=== PATIENT | male | born 1955 | race Two or more races ===

== ENCOUNTER 2018-10-16 09:27 | Inpatient (IN) | payer SELFPAY ==
[2018-10-16] MEDS ORDERED: ONDANSETRON 4 MG/2 ML VIAL IVPUSH ONE (10:10)
[2018-10-16] MEDS ORDERED: SODIUM CHLORIDE 1,000 ML IV STA ×2 (10:10→14:48)
[2018-10-16 10:53] LABS: BASO % 0.4 % (0-2.0); EOS % 2.7 % (0-4.5); HEMATOCRIT 41.3 % (35.4-49); HEMOGLOBIN 13.8 GM/dL (11.7-16.9); LYMPH % 4.6 % (8-40); MCH 30.6 pg (25.7-33.7); MCHC 33.4 g/dl (32.0-35.9); MEAN CELL VOLUME 91.5 fl (80-96); MEAN PLT VOLUME 6.8 fl (7.5-11.1); MONO % 5.9 % (3.8-10.2); NEUT % 86.4 % (42.8-82.8); PLATELET COUNT 364 K/MM3 (134-434); RBC 4.51 M/mm3 (4.00-5.60); RDW 15.5 % (11.9-15.9); WHITE BLOOD COUNT 8.9 K/mm3 (4.0-10.0)
[2018-10-16 10:57] LABS: VENOUS PC02 42.9 mmHg (38-52); VENOUS PH 7.38 (7.31-7.41)
--- NOTE | 2018-10-16 10:58 | PDOC ---
Documentation entered by Joanne Beauchamp SCRIBE, acting as scribe for Gabriela Treviño MD. Gabriela Treviño MD: This documentation has been prepared by the Nito webber Xhesika, SCRIBE, under my direction and personally reviewed by me in its entirety. I confirm that the documentation accurately reflects all work, treatment, procedures, and medical decision making performed by me. Attending Attestation - Resident Resident Name: Ceasar Dunn - ED Attending Attestation I have performed the following: I have examined & evaluated the patient, The case was reviewed & discussed with the resident, I agree w/resident's findings & plan, Exceptions are as noted - HPI HPI: 10/16/18 10:45 The patient is a 62 year old male with a significant PMH of HTN, osteoarthritis (knees, hip and back), hep C (currently undergoing treatment) and recent UTI ( on Bactrim) who presents to the emergency department with generalized weakness, fatigue, sweating, chest pain and nausea. Patient states he started a new medication yesterday evening for Hep C. He awoke this morning, stated that he tried to get up but felt weak, endorsed a fever at home and headache. Patient currently lives in a fpc and denies any recent travels, denies PPD. The patient denies shortness of breath, and dizziness. Denies cough, vomiting, diarrhea and constipation. Denies dysuria, frequency, urgency and hematuria. Allergies: NKDA PCP: Padilla Garcia - Physicial Exam PE: 10/16/18 10:20 GENERAL: The patient is in no acute distress, sweaty ENT: Ears normal, nares patent, oropharynx clear without exudates. Dry mucous membranes. NECK: Normal range of motion, supple, no nuchal rigidity LUNGS: Breath sounds equal, clear to auscultation bilaterally. No wheezes, and no crackles. HEART: Regular rate and rhythm, normal S1 and S2 without murmur, rub or gallop. ABDOMEN: Soft, suprapubic tenderness, no involuntary guarding, no rebound. EXTREMITIES: (+) lower extremity edema. NEUROLOGICAL: Cranial nerves II through XII grossly intact. Normal speech. No focal neurological deficits. SKIN: Warm, Dry, normal turgor, no rashes or lesions noted. 10/16/18 10:50 - Medical Decision Making 08/23/19 10:20 62 yo m h/o HLD, Hep C (s/p new medication), DVT dx 4 months ago (on Coumadin), currently being treated for UTI (has had gross hematuria and dysuria for the past 3 weeks) EKG: ST rate of 106 bpm, axis nml, intervals nml, no st elevation or depression , t wave inversion III 10/16/18 10:51 62 yo M presenting with a complaint of generalized weakness, suprapubic pain He feels like he has a fever Temp =99.7 Will do Rectal temp Will do sepsis orderset tylenol for pain IVF Re Assess 10/16/18 14:41 Laboratory Tests 10/16/18 10/16/18 10/16/18 10:14 10:14 10:30 WBC Hgb Hct Plt Count INR VBG pH POC VBG pCO2 POC VBG pO2 Sodium 134 L Potassium 4.2 Chloride 101 Carbon Dioxide 26 BUN 18.6 H Creatinine 1.1 Random Glucose 98 Lactic Acid 2.1 H Troponin I < 0.02 Lipase 113 Urine Blood Urine Nitrite Ur Leukocyte Esterase 10/16/18 10/16/18 10/16/18 10:30 10:30 10:30 WBC 8.9 Hgb 13.8 Hct 41.3 Plt Count 364 INR 1.13 H VBG pH 7.38 POC VBG pCO2 42.9 POC VBG pO2 < 49 H Sodium Potassium Chloride Carbon Dioxide BUN Creatinine Random Glucose Lactic Acid Troponin I Lipase Urine Blood Urine Nitrite Ur Leukocyte Esterase 10/16/18 13:05 WBC Hgb Hct Plt Count INR VBG pH POC VBG pCO2 POC VBG pO2 Sodium Potassium Chloride Carbon Dioxide BUN Creatinine Random Glucose Lactic Acid Troponin I Lipase Urine Blood Negative Urine Nitrite Negative Ur Leukocyte Esterase Negative Rectal Temp 101 Tylenol given CTA - NO PE CT Abd - Gallbladder is distended with small stones in the neck, no GB wall thickening, No PCCF Will do: US GB Zosyn ordered IVF given Will plan to Admit (given fever and CT findings) Clinical impression: Acute Cholecystitis, initial presentation
[2018-10-16 11:00] LABS: VENOUS PO2 < 49 mmHg (28-48)
[2018-10-16] MEDS ORDERED: ONDANSETRON 4 MG/2 ML VIAL ONE (11:20)
[2018-10-16 11:24] LABS: INR 1.13 (0.83-1.09); PROTHROMBIN TIME (PATIENT) 13.4 SEC (9.7-13.0)
[2018-10-16 11:26] LABS: ACTIVATED PTT 33.8 SECONDS (25.2-36.5)
[2018-10-16 11:37] LABS: ALBUMIN 3.4 g/dl (3.4-5.0); BILIRUBIN,TOTAL 0.7 mg/dL (0.2-1); BLOOD UREA NITROGEN 18.6 mg/dL (7-18); CALCIUM 9.1 mg/dL (8.5-10.1); CREATININE 1.1 mg/dL (0.55-1.3); POTASSIUM 4.2 mmol/L (3.5-5.1)
--- NOTE | 2018-10-16 11:42 | EKG ---
Test Reason : Blood Pressure : / mmHG Vent. Rate : 106 BPM Atrial Rate : 106 BPM P-R Int : 166 ms QRS Dur : 086 ms QT Int : 320 ms P-R-T Axes : 015 014 021 degrees QTc Int : 425 ms SINUS TACHYCARDIA OTHERWISE NORMAL ECG NO PREVIOUS ECGS AVAILABLE Confirmed by SHEILA VUONG MD ([id number]) on 10/16/2018 11:42:29 AM Referred By: Confirmed By:SHEILA VUONG MD
--- NOTE | 2018-10-16 12:13 | PDOC ---
History of Present Illness - General Chief Complaint: Chest Pain Stated Complaint: CHEST PAIN Time Seen by Provider: 10/16/18 09:44 - History of Present Illness Initial Comments: 10/16/18 12:24 62m with pmh of hepc, htn, dvt, presenting with chest pain, shortness of breath , nausea, diaphoresis, abdominal pain for the past day after starting new medication yesterday "Harvoni" All of these symptoms atarted last night around 3 am. Patient is currently being treated for a UTI with Bactrim. Is also is complaining of chronic joint pain especially at the hips. Denies vomiting, constipation, dysuria, diarrhea. Past History - Past Medical History Allergies/Adverse Reactions: Allergies Allergy/AdvReac Type Severity Reaction Status Date / Time No Known Allergies Allergy Verified 10/16/18 09:48 Home Medications: Ambulatory Orders Acetaminophen [Pain Relief] 650 mg PO PRN PRN 10/16/18 Atorvastatin Ca [Lipitor] 20 mg PO HS 10/16/18 Ledipasvir/Sofosbuvir [Harvoni 90-400 mg Tablet] 1 tab PO DAILY 10/16/18 Paroxetine HCl [Paxil -] 60 mg PO DAILY 10/16/18 Sulfamethoxazole/Trimethoprim [Bactrim Ds -] 1 tab PO BID 10/16/18 Warfarin Sodium 3 mg PO DAILY 10/16/18 traZODone HCL [Trazodone HCl] 100 mg PO DAILY 10/16/18 COPD: No GI Disorders: Yes (hep c) HTN: Yes Hypercholesterolemia: Yes Other medical history: RLE DVT - Suicide/Smoking/Psychosocial Hx Smoking History: Former smoker Have you smoked in the past 12 months: No Information on smoking cessation initiated: No Hx Alcohol Use: No Drug/Substance Use Hx: No Review of Systems - Review of Systems Able to Perform ROS?: Yes Is the patient limited Kuwaiti proficient: No Constitutional: Yes: Diaphoresis HEENTM: No: Symptoms Reported Respiratory: Yes: See HPI, Shortness of Breath Cardiac (ROS): Yes: See HPI : Yes: See HPI Musculoskeletal: Yes: See HPI Neurological: No: Symptoms reported *Physical Exam - Vital Signs Last Vital Signs Temp Pulse Resp BP Pulse Ox 99.4 F 114 H 20 101/70 93 L 10/16/18 09:40 10/16/18 09:40 10/16/18 09:40 10/16/18 09:40 10/16/18 09:40 - Physical Exam General Appearance: Yes: Nourished, Moderate Distress HEENT: positive: EOMI, LEYDI, Normal ENT Inspection Respiratory/Chest: positive: Lungs Clear, Normal Breath Sounds. negative: Chest Tender, Respiratory Distress Cardiovascular: positive: Regular Rhythm, S1, S2, Tachycardia Gastrointestinal/Abdominal: positive: Normal Bowel Sounds, Tender (suprapubic), Soft, Protuberent Musculoskeletal: positive: Normal Inspection. negative: CVA Tenderness Extremity: positive: Normal Capillary Refill, Normal Inspection, Normal Range of Motion Integumentary: positive: Diaphoresis (slight) Neurologic: positive: Fully Oriented, Alert, Normal Mood/Affect, Normal Response ED Treatment Course - LABORATORY CBC & Chemistry Diagram: 10/16/18 10:30 10/16/18 10:14 - ADDITIONAL ORDERS Additional order review: Laboratory Results 10/16/18 10/16/18 10/16/18 10:30 10:30 10:30 PT with INR 13.40 H INR 1.13 H PTT (Actin FS) 33.8 VBG pH 7.38 POC VBG pCO2 42.9 POC VBG pO2 < 49 H VBG HCO3 24.6 VBG O2 Sat (Alla) 56.5 L VBG Base Excess -0.2 Sodium Potassium Chloride Carbon Dioxide Anion Gap BUN Creatinine Est GFR (CKD-EPI)AfAm Est GFR (CKD-EPI)NonAf Random Glucose Lactic Acid Calcium Total Bilirubin AST ALT Alkaline Phosphatase Troponin I < 0.02 Total Protein Albumin Lipase 10/16/18 10/16/18 10:14 10:14 PT with INR INR PTT (Actin FS) VBG pH POC VBG pCO2 POC VBG pO2 VBG HCO3 VBG O2 Sat (Alla) VBG Base Excess Sodium 134 L Potassium 4.2 Chloride 101 Carbon Dioxide 26 Anion Gap 7 L BUN 18.6 H Creatinine 1.1 Est GFR (CKD-EPI)AfAm 82.95 Est GFR (CKD-EPI)NonAf 71.57 Random Glucose 98 Lactic Acid 2.1 H Calcium 9.1 Total Bilirubin 0.7 AST 27 ALT 45 Alkaline Phosphatase 89 Troponin I Total Protein 8.0 Albumin 3.4 Lipase 113 10/16/18 10:30 RBC 4.51 MCV 91.5 MCHC 33.4 RDW 15.5 MPV 6.8 L Neutrophils % 86.4 H Lymphocytes % 4.6 L Monocytes % 5.9 Eosinophils % 2.7 Basophils % 0.4 - RADIOLOGY Radiology Studies Ordered: Category Date Time Status ABDOMEN & PELVIS CT WITH CONTR [CT] Stat CT Scan 10/16/18 12:12 Ordered CHEST X-RAY PORTABLE* [RAD] Stat Radiology 10/16/18 10:09 Completed - Medications Given in the ED: ED Medications Discontinued Medications Generic Name Dose Route Start Last Admin Trade Name Freq PRN Reason Stop Dose Admin Sodium Chloride 1,000 mls @ 1,000 mls/hr 10/16/18 10:10 10/16/18 10:48 Normal Saline - IV 10/16/18 11:09 1,000 mls/hr ASDIR STA Administration Ondansetron HCl 4 mg 10/16/18 10:10 10/16/18 11:10 Zofran Injection IVPUSH 10/16/18 10:11 4 mg ONCE ONE Administration Medical Decision Making - Medical Decision Making 10/16/18 14:15 62 with htn, hld, uti and hepC presenting with chest pain, abdominal pain. Patient is tachycardiac with low grade fever will oder septic workup. Considering possible worsening UTi as source of infection especially with suprapubic pain and known uti, but also pneumonia and appendicitis. In addition considering WA, dissection, AAA. EKG: cxr: no acute pathologies. Kidney function normal, ordering chest and abdomen/pelvic CTA. CTA read pending. 10/16/18 14:18 lactate 2.1 No UTI seen on UA. 10/16/18 14:45 CTA read Normal size thoracic aorta without aneurysmal dilatation. There is a small short segment of fusiform dilatation of the distal abdominal aorta just prior to its bifurcation where it measures 2.6 x 2.4 cm in transverse and AP dimension with an atheromatous plaque. 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 There is no evidence of dissection involving the thoracic and abdominal aorta. No acute lung disease is present. No enlarged mediastinal or hilar lymph nodes are identified. Minimal calcification of the coronary arteries. In the abdomen pelvis, there is suggestion of mild fatty infiltration of the liver. Small gallstones with a 6 mm stone seen at the level of the gallbladder neck and its junction with the cystic duct. Correlate clinically for further evaluation. Small bilateral renal cysts, as described above. Tiny fat-containing bilateral inguinal and umbilical hernia. Deformity of L5 vertebral body with compression likely due to old fractures/ trauma with a grade 2 anterolisthesis of L5 over S1 and fusion. There is suggestion of bilateral spondylolysis of L5 pars interarticulares. Severe degenerative changes involving the left hip joint with deformity of the left femoral head. Large cystic density in the left femoral neck measuring 4.8 x 3.1 cm likely benign. Further evaluation is recommended. Moderate degenerative narrowing of the right hip joint, superiorly. 10/16/18 16:44 Multiple obstructing stones on ct and US. Patient sepsis treated with abx and ns. Spoke to Dr. Oseguera with surgery who will come see the patient. 10/16/18 16:46 Patient admitted to med surg. *DC/Admit/Observation/Transfer Diagnosis at time of Disposition: Sepsis, Cholecystitis - Discharge Dispostion Decision to Admit order: Yes - Referrals Referrals: Padilla John MD [Primary Care Provider] - - Patient Instructions - Post Discharge Activity
[2018-10-16] MEDS ORDERED: ACETAMINOPHEN 1000 MG/100 ML VIAL (NON FORMULARY) IVPB ONE (12:33)
[2018-10-16] MEDS ORDERED: ACETAMINOPHEN INJECTION 100 ML IVPB ONE (12:53)
[2018-10-16 13:22] LABS: URINE APPEARANCE CLEAR; URINE BILIRUBIN NEGATIVE (NEGATIVE); URINE COLOR DK YELLOW; URINE GLUCOSE (UA) NEGATIVE (NEGATIVE); URINE KETONE TRACE (NEGATIVE); URINE LEUK ESTERASE NEGATIVE (NEGATIVE); URINE NITRITE NEGATIVE (NEGATIVE); URINE PROTEIN TRACE (NEGATIVE)
[2018-10-16] MEDS ORDERED: PIPERACILLIN/TAZOB 4.5 GM 4.5 GM in DEXTROSE 5%-WATER 100 ML IVPB ONE (14:45)
[2018-10-16] MEDS ORDERED: IBUPROFEN 800 MG/8 ML IJ IVPB ONE (14:46)
[2018-10-16] MEDS ORDERED: PIPERACILLIN/TAZOB 4.5 GM 4.5 GM/100 ML BAG IVPB ONE (17:00)
--- NOTE | 2018-10-16 17:55 | CONSULT ---
- Consultation REQUESTING PROVIDER: Shaun BACON CONSULT REQUEST: We have been asked to surgically evaluate this patient for abdominal/chest pain which upon w/u reveals symptomatic gallbladder disease. PCP:Carmenza Grijalva HISTORY OF PRESENT ILLNESS: CTSP who presented w/n/v/ RUQ pain after eating; he never had this before; he denies dark urine/light stools or any other GI/ c/o e/f hep C.recently started on Harvoni.. Pain radiated to his back and was associated w/" heartburn "; he came to the ER for evaluation and a w/u was done ; he originally described the pain as " chest pain " PMHx: htn/hld/hep C /? DVT ?/anxiety PSHx: none Home Medications Medication Instructions Recorded Acetaminophen [Pain Relief] 650 mg PO PRN PRN 10/16/18 Atorvastatin Ca [Lipitor] 20 mg PO HS 10/16/18 Ledipasvir/Sofosbuvir [Harvoni 1 tab PO DAILY 10/16/18 90-400 mg Tablet] Paroxetine HCl [Paxil -] 60 mg PO DAILY 10/16/18 Sulfamethoxazole/Trimethoprim 1 tab PO BID 10/16/18 [Bactrim Ds -] Warfarin Sodium 3 mg PO DAILY 10/16/18 traZODone HCL [Trazodone HCl] 100 mg PO DAILY 10/16/18 Allergies Allergy/AdvReac Type Severity Reaction Status Date / Time No Known Allergies Allergy Verified 10/16/18 09:48 REVIEW OF SYSTEMS: CONSTITUTIONAL: Absent: fever, chills, diaphoresis, generalized weakness, malaise, loss of appetite, weight change CARDIOVASCULAR: Absent: chest pain, syncope, palpitations, irregular heart rate, lightheadedness , peripheral edema RESPIRATORY: Absent: cough, shortness of breath, dyspnea with exertion, wheezing, stridor, hemoptysis GASTROINTESTINAL: Absent: abdominal pain, abdominal distension, nausea, vomiting, diarrhea, constipation, melena, hematochezia GENITOURINARY: Absent: dysuria, frequency, urgency, hesitancy, hematuria, flank pain, genital pain MUSCULOSKELETAL: Absent: myalgia, arthralgia, joint swelling, back pain, neck pain SKIN: Absent: rash, itching, pallor HEMATOLOGIC/IMMUNOLOGIC: Absent: easy bleeding, easy bruising, lymphadenopathy NEUROLOGIC: Absent: headache, focal weakness, paresthesias, dizziness, unsteady gait, seizure, mental status changes, bladder or bowel incontinence PSYCHIATRIC: Absent: anxiety, depression, suicidal or homicidal ideation, hallucinations. PHYSICAL EXAM: GENERAL: Awake, alert, and fully oriented, in no acute distress. HEAD: Normal with no signs of trauma. EYES: PERRL, sclera anicteric, conjunctiva clear. NECK: Normal ROM, supple without lymphadenopathy, JVD, or masses. ABDOMEN: Soft, nontender, not distended, normoactive bowel sounds, no guarding, no rebound, no masses. No organomegaly. No clinical hernias MUSCULOSKELETAL: Normal ROM at all joints. No bony deformities or tenderness. No CVA tenderness. UPPER EXTREMITIES: 2+ pulses, warm, well-perfused. No cyanosis. Cap refill <2 seconds. No peripheral edema. LOWER EXTREMITIES: 2+ pulses, warm, well-perfused. No calf tenderness. No peripheral edema. NEUROLOGICAL: Normal speech, gait not observed. PSYCH: Cooperative. Good eye contact. Appropriate mood and affect. SKIN: Warm, dry, normal turgor, no rashes or lesions noted. Vital Signs Temperature 101.0 F H 10/16/18 11:00 Pulse Rate 114 H 10/16/18 09:40 Respiratory Rate 20 10/16/18 09:40 Blood Pressure 101/70 10/16/18 09:40 O2 Sat by Pulse Oximetry (%) 93 L 10/16/18 09:40 Lab Results WBC 8.9 K/mm3 (4.0-10.0) 10/16/18 10:30 RBC 4.51 M/mm3 (4.00-5.60) 10/16/18 10:30 Hgb 13.8 GM/dL (11.7-16.9) 10/16/18 10:30 Hct 41.3 % (35.4-49) 10/16/18 10:30 MCV 91.5 fl (80-96) 10/16/18 10:30 MCHC 33.4 g/dl (32.0-35.9) 10/16/18 10:30 RDW 15.5 % (11.9-15.9) 10/16/18 10:30 Plt Count 364 K/MM3 (134-434) 10/16/18 10:30 Sodium 134 mmol/L (136-145) L 10/16/18 10:14 Potassium 4.2 mmol/L (3.5-5.1) 10/16/18 10:14 Chloride 101 mmol/L (98-107) 10/16/18 10:14 Carbon Dioxide 26 mmol/L (21-32) 10/16/18 10:14 Anion Gap 7 MMOL/L (8-16) L 10/16/18 10:14 BUN 18.6 mg/dL (7-18) H 10/16/18 10:14 Creatinine 1.1 mg/dL (0.55-1.3) 10/16/18 10:14 Random Glucose 98 mg/dL (74-106) 10/16/18 10:14 Calcium 9.1 mg/dL (8.5-10.1) 10/16/18 10:14 INR 1.13 (0.83-1.09) H 10/16/18 10:30 US/CTA a/p and CTA chest reviewed IMP:symptomatic gallbladder disease PLAN: Admit/NPO/IVF/IVABS/pain control and lap michelle possible open 10/19/18; r/b /t/a's d/w him and he will give informed consent.. Paresh Oseguera MD FACS
[2018-10-16] MEDS ORDERED: MORPHINE SULFATE 2 MG/ML VIAL IVPUSH PRN (18:07)
[2018-10-16] MEDS ORDERED: ACETAMINOPHEN 325 MG TABLET (FP) PO PRN (18:07)
[2018-10-16] MEDS ORDERED: LACTATED RINGERS SOLUTION 1,000 ML IV SCH (18:15)
[2018-10-16] MEDS ORDERED: CEFTRIAXONE 1 GM in DEXTROSE 5%-WATER - 50 ML IVPB ONE (18:15)
--- NOTE | 2018-10-16 18:26 | HP ---
CHIEF COMPLAINT: abdominal pain PCP: HISTORY OF PRESENT ILLNESS:62 yo M PMH HTN, HLD, DVT R Leg on warfarin, mood disorder, osteoarthritis, hep C ( currently treating w/Harvoni ), mood disorder , and recently UTI ( still taking Bactrim x2w) presented to ED with Abdominal pain. fatigue, CP, nausea. Pt states the pain began over night as chest pain keeping him from sleeping. When patient woke up this morning he had abdominal pain and weakness. pt states the pain is sharp 10/10 in RUQ/ R flank. Pt states the pain is localized to that region. He denies eating anything this am. pt states he has never experienced this in the past. Pt states the pain has not improved with anything. The pt recently started a new medication for his Hep C and was warned of some of these symptoms. Pt states he recently had a DVT in May this year. Pt was incarcerated and is now living in a intermediate but follows up with [facility] regularly. He states he is compliant with his medications. ER course was notable for: (1)CT showing cholelithiasis, AAA- see below for details (2) Zosyn (3) NS x2 Recent Travel: denies PAST MEDICAL HISTORY: as stated above PAST SURGICAL HISTORY: denies Social History: Smokin pk yrs, quit 2 years ago Alcohol:denies Drugs: denies Family History: Father DM, Sister of liver cirrhosis , AIDS Allergies No Known Allergies Allergy (Verified 10/16/18 09:48) HOME MEDICATIONS: Home Medications Medication Instructions Recorded Acetaminophen [Pain Relief] 650 mg PO PRN PRN 10/16/18 Atorvastatin Ca [Lipitor] 20 mg PO HS 10/16/18 Ledipasvir/Sofosbuvir [Harvoni 1 tab PO DAILY 10/16/18 90-400 mg Tablet] Paroxetine HCl [Paxil -] 60 mg PO DAILY 10/16/18 Sulfamethoxazole/Trimethoprim 1 tab PO BID 10/16/18 [Bactrim Ds -] Warfarin Sodium 3 mg PO DAILY 10/16/18 traZODone HCL [Trazodone HCl] 100 mg PO DAILY 10/16/18 REVIEW OF SYSTEMS CONSTITUTIONAL: Present: chills, generalized weakness Absent: fever, diaphoresis, malaise, loss of appetite, weight change HEENT: Absent: rhinorrhea, nasal congestion, throat pain, throat swelling, difficulty swallowing, mouth swelling, ear pain, eye pain, visual changes CARDIOVASCULAR: Present: chest pain, dizziness Absent: syncope, palpitations, irregular heart rate, lightheadedness, peripheral edema RESPIRATORY: Absent: cough, shortness of breath, dyspnea with exertion, orthopnea, wheezing, stridor, hemoptysis GASTROINTESTINAL: Present: abdominal pain, nausea Absent: abdominal distension, vomiting, diarrhea, constipation, melena, hematochezia GENITOURINARY: Absent: dysuria, frequency, urgency, hesitancy, hematuria, flank pain, genital pain MUSCULOSKELETAL: Absent: myalgia, arthralgia, joint swelling, back pain, neck pain SKIN: Absent: rash, itching, pallor HEMATOLOGIC/IMMUNOLOGIC: Absent: easy bleeding, easy bruising, lymphadenopathy, frequent infections ENDOCRINE: Absent: unexplained weight gain, unexplained weight loss, heat intolerance, cold intolerance NEUROLOGIC: Present: dizziness Absent: headache, focal weakness or paresthesias, unsteady gait, seizure, mental status changes, bladder or bowel incontinence PSYCHIATRIC: Absent: anxiety, depression, suicidal or homicidal ideation, hallucinations. PHYSICAL EXAMINATION Vital Signs - 24 hr 10/16/18 10/16/18 09:40 11:00 Temperature 99.4 F 101.0 F H Pulse Rate 114 H Respiratory 20 Rate Blood Pressure 101/70 O2 Sat by Pulse 93 L Oximetry (%) GENERAL: Awake, alert, and fully oriented, in no acute distress. diaphoretic HEAD: Normal with no signs of trauma. EYES: Pupils equal, round and reactive to light, extraocular movements intact, sclera anicteric, conjunctiva clear. No lid lag. EARS, NOSE, THROAT: Ears normal, nares patent, oropharynx clear without exudates. Moist mucous membranes. NECK: Normal range of motion, supple without lymphadenopathy, JVD, or masses. LUNGS: Breath sounds equal, clear to auscultation bilaterally. No wheezes, and no crackles. No accessory muscle use. HEART: tachycardic and regular rhythm, normal S1 and S2 without murmur, rub or gallop. ABDOMEN: Soft, not distended,tender to palpation in RUQ, LLQ. +Luckey sign, normoactive bowel sounds,no rebound, no masses. + hepatomegaly. No CVA tenderness MUSCULOSKELETAL: Normal range of motion at all joints. No bony deformities or tenderness. No CVA tenderness. UPPER EXTREMITIES: 2+ pulses, warm, well-perfused. No cyanosis. No clubbing. No peripheral edema. LOWER EXTREMITIES: 2+ pulses, warm, well-perfused. + calf tenderness. B/L nonpitting edema. NEUROLOGICAL: Cranial nerves II-XII intact. Normal speech. gait not observed . PSYCHIATRIC: Cooperative. Good eye contact. Appropriate mood and affect. SKIN: Warm, dry, normal turgor, no rashes or lesions noted, normal capillary refill. Laboratory Last Values WBC 8.9 K/mm3 (4.0-10.0) 10/16/18 10:30 RBC 4.51 M/mm3 (4.00-5.60) 10/16/18 10:30 Hgb 13.8 GM/dL (11.7-16.9) 10/16/18 10:30 Hct 41.3 % (35.4-49) 10/16/18 10:30 MCV 91.5 fl (80-96) 10/16/18 10:30 MCH 30.6 pg (25.7-33.7) 10/16/18 10:30 MCHC 33.4 g/dl (32.0-35.9) 10/16/18 10:30 RDW 15.5 % (11.9-15.9) 10/16/18 10:30 Plt Count 364 K/MM3 (134-434) 10/16/18 10:30 MPV 6.8 fl (7.5-11.1) L 10/16/18 10:30 Absolute Neuts (auto) 7.7 K/mm3 (1.5-8.0) 10/16/18 10:30 Neutrophils % 86.4 % (42.8-82.8) H 10/16/18 10:30 Lymphocytes % 4.6 % (8-40) L 10/16/18 10:30 Monocytes % 5.9 % (3.8-10.2) 10/16/18 10:30 Eosinophils % 2.7 % (0-4.5) 10/16/18 10:30 Basophils % 0.4 % (0-2.0) 10/16/18 10:30 Nucleated RBC % 0 % (0-0) 10/16/18 10:30 PT with INR 13.40 SEC (9.7-13.0) H 10/16/18 10:30 INR 1.13 (0.83-1.09) H 10/16/18 10:30 PTT (Actin FS) 33.8 SECONDS (25.2-36.5) 10/16/18 10:30 VBG pH 7.38 (7.31-7.41) 10/16/18 10:30 POC VBG pCO2 42.9 mmHg (38-52) 10/16/18 10:30 POC VBG pO2 < 49 mmHg (28-48) H 10/16/18 10:30 VBG HCO3 24.6 mmol/L (23-29) 10/16/18 10:30 VBG O2 Sat (Alla) 56.5 % (70-80) L 10/16/18 10:30 VBG Base Excess -0.2 meq/l (-2-2) 10/16/18 10:30 Sodium 134 mmol/L (136-145) L 10/16/18 10:14 Potassium 4.2 mmol/L (3.5-5.1) 10/16/18 10:14 Chloride 101 mmol/L (98-107) 10/16/18 10:14 Carbon Dioxide 26 mmol/L (21-32) 10/16/18 10:14 Anion Gap 7 MMOL/L (8-16) L 10/16/18 10:14 BUN 18.6 mg/dL (7-18) H 10/16/18 10:14 Creatinine 1.1 mg/dL (0.55-1.3) 10/16/18 10:14 Est GFR (CKD-EPI)AfAm 82.95 10/16/18 10:14 Est GFR (CKD-EPI)NonAf 71.57 10/16/18 10:14 Random Glucose 98 mg/dL (74-106) 10/16/18 10:14 Lactic Acid 2.1 mmol/L (0.4-2.0) H 10/16/18 10:14 Calcium 9.1 mg/dL (8.5-10.1) 10/16/18 10:14 Total Bilirubin 0.7 mg/dL (0.2-1) 10/16/18 10:14 AST 27 U/L (15-37) 10/16/18 10:14 ALT 45 U/L (13-61) 10/16/18 10:14 Alkaline Phosphatase 89 U/L (45-117) 10/16/18 10:14 Troponin I < 0.02 ng/ml (0.00-0.05) 10/16/18 10:30 Total Protein 8.0 g/dl (6.4-8.2) 10/16/18 10:14 Albumin 3.4 g/dl (3.4-5.0) 10/16/18 10:14 Lipase 113 U/L (73-393) 10/16/18 10:14 Urine Color Dk yellow 10/16/18 13:05 Urine Appearance Clear 10/16/18 13:05 Urine pH 6.0 (5.0-8.0) 10/16/18 13:05 Ur Specific [place] 1.025 (1.010-1.035) 10/16/18 13:05 Urine Protein Trace (NEGATIVE) 10/16/18 13:05 Urine Glucose (UA) Negative (NEGATIVE) 10/16/18 13:05 Urine Ketones Trace (NEGATIVE) H 10/16/18 13:05 Urine Blood Negative (NEGATIVE) 10/16/18 13:05 Urine Nitrite Negative (NEGATIVE) 10/16/18 13:05 Urine Bilirubin Negative (NEGATIVE) 10/16/18 13:05 Urine Urobilinogen 1.0 mg/dL (0.2-1.0) 10/16/18 13:05 Ur Leukocyte Esterase Negative (NEGATIVE) 10/16/18 13:05 CT Abdomen/ Pelvis: IMPRESSION: Mild fusiform aneurysmal dilatation of the distal abdominal aorta, as described above. 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 There is no evidence of dissection involving the thoracic and abdominal aorta. No acute lung disease is present. No enlarged mediastinal or hilar lymph nodes are identified. Minimal calcification of the coronary arteries. In the abdomen pelvis, there is suggestion of mild fatty infiltration of the liver. Small gallstones with a 6 mm stone seen at the level of the gallbladder neck and its junction with the cystic duct. Correlate clinically for further evaluation. Small bilateral renal cysts, as described above. Tiny fat-containing bilateral inguinal and umbilical hernia. Deformity of L5 vertebral body with compression likely due to old fractures/trauma with a grade 2 anterolisthesis of L5 over S1 and fusion. There is suggestion of bilateral spondylolysis of L5 pars interarticulares. Severe degenerative changes involving the left hip joint with deformity of the left femoral head. Large cystic density in the left femoral neck measuring 4.8 x 3.1 cm likely benign. Further evaluation is recommended. Moderate degenerative narrowing of the right hip joint, superiorly. U/S: Impression: Cholelithiasis is noted without sonographic evidence of acute cholecystitis. The common bile duct is not adequately visualized due to obscuring bowel gas. No biliary tract dilatation was described on CT performed earlier the same date. The infrarenal aorta is obscured on the current exam due to bowel gas. 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 Correlation with 2 month follow-up contrast enhanced CT is suggested to evaluate stability. ASSESSMENT/PLAN: 62 yo M PMH HTN, HLD, DVT R Leg on warfarin, mood disorder, osteoarthritis, hep C ( currently treating w/Harvoni ), mood disorder, and recently UTI ( still taking Bactrim x2w) presented to ED with Abdominal pain. fatigue, CP, nausea. Pt is admitted for Acute cholecytitis. In ED, hypotensive 84/42, rpt 94/61 Abdominal Pain likely 2/2 Acute cholecytitis -CT Abdomen/ Pelvis: reviewed, gallstones seen in gallbladder neck and its junction w/ cystic duct. -U/S : cholelithiasis, no biliary tract dilation -NPO -IVF NS @ 125 mls/hr -500 ml bolus NS -Morphine 2mg q4 for pain -tele monitor -Surgery recs appreciated, possible lap/cholecytectomy -s/p zosyn in Ed -Ceftriaxone, Flagyl -trend LFTs -Lactic a--> 2.1, will rpt AAA -incidental finding -outpt f/u in 6 mo for U/S Hx of DVT -Doppler to r/o increasing DVT -suboptimal INR -Full dose Lovenox UTI -UA negative -will follow Cx HCV -Harvoni F/E/N -NS @ 125 mls/hr -NPO DVTppx:on full dose lovenox Dispo: monitor on tele until medically optimized Visit type - Emergency Visit Emergency Visit: Yes ED Registration Date: 10/16/18 Care time: The patient presented to the Emergency Department on the above date and was hospitalized for further evaluation of their emergent condition. - New Patient This patient is new to me today: Yes Date on this admission: 10/16/18 - Critical Care Critical Care patient: No ATTENDING PHYSICIAN STATEMENT I saw and evaluated the patient. I reviewed the resident's note and discussed the case with the resident. I agree with the resident's findings and plan as documented. SUBJECTIVE: OBJECTIVE: ASSESSMENT AND PLAN:
[2018-10-16] MEDS ORDERED: SODIUM CHLORIDE 1,000 ML IV SCH ×2 (18:30→20:07)
[2018-10-16] MEDS ORDERED: CEFTRIAXONE 1 GM/50 ML BAG ONE ×2 (18:33→18:34)
--- NOTE | 2018-10-16 18:34 | PN ---
Teaching Attending Note Name of Resident: Shanta Lee ATTENDING PHYSICIAN STATEMENT I saw and evaluated the patient. I reviewed the resident's note and discussed the case with the resident. I agree with the resident's findings and plan as documented. SUBJECTIVE:62yo M with PMH HTN. mood disorder, DVT diagnosed in May on coumadin, recent diagnosed UTI on bactrim and HCV started on Harvoni presented to the ER wtih generalized weakness, subjective fevers, and RUQ pain that started this AM. states he had hard time sleeping last night but felt well. does endorse intermittent RUQ for the past few months but related in to his liver. was started on Harvoni yesterday for active HCV. denies CP, SOB, N/V/C/D OBJECTIVE: Last Vital Signs Temp Pulse Resp BP Pulse Ox 101.0 F H 114 H 20 101/70 93 L 10/16/18 11:00 10/16/18 09:40 10/16/18 09:40 10/16/18 09:40 10/16/18 09:40 General mild distress due to pain, +chills CV S1 S2 tachy Lungs CTA B/L no wheezing/rlaes/rhonchi Abdomen +RUQ pain. enlarged liver +lacy sign Extremiteis +edema B/L ASSESSMENT AND PLAN: 62yo M with PMH HTN. mood disorder, DVT diagnosed in May on coumadin, recent diagnosed UTI on bactrim and HCV started on Harvoni presented to the ER wtih generalized weakness, subjective fevers, and RUQ pain that started this AM and found to be septic due to acute cholecystitis 1. Sepsis due to acute cholecystitis-medicine admission. Tm 101 with tachycardia. start NPO, IVF, ceftriaxone and flagyl and pain control. Surgery consulted as will need cholecystectomy this admission. trend LFT, repeat lactic acid 2. DVT on coumadin-INR subtherapeutic. will check doppler as has pedal edema to see if clot is there. will hold coumadin for possible surgery. start full dose lovenox 3. UTI - was on bactrim. will hold as being on abx that would treat. f/u Cx 4. AAA- 2.6cm. will need outpatient follow up 5. HCV- on Harvoni 6. DVT ppx- full dose lovenox
[2018-10-16] MEDS ORDERED: SODIUM CHLORIDE 500 ML IV STA (19:20)
[2018-10-16] MEDS ORDERED: ATORVASTATIN CA 20 MG TABLET (FP) ONE (21:33)
[2018-10-16] MEDS ORDERED: traZODone HCL 50 MG TABLET (FP) PO SCH (22:00)
[2018-10-16] MEDS: traZODone HCL 100 MG TABLET (FP) PO SCH (22:00)
[2018-10-16] MEDS: ATORVASTATIN CA 20 MG TABLET (FP) PO SCH (22:00)
[2018-10-16] MEDS: ENOXAPARIN NA (PORCINE) 120 MG/0.8 ML DISP.SYRIN SQ SCH (22:00)
[2018-10-17] MEDS ORDERED: MORPHINE SULFATE 2 MG/ML VIAL ONE (07:47)
[2018-10-17] MEDS: ENOXAPARIN NA (PORCINE) 120 MG/0.8 ML DISP.SYRIN SQ SCH (10:16)
[2018-10-17] MEDS: PARoxetine HCL 20 MG TABLET PO SCH (10:17)
[2018-10-17 10:30] LABS: HEMATOCRIT 36.4 % (35.4-49); HEMOGLOBIN 12.1 GM/dL (11.7-16.9); MCH 30.5 pg (25.7-33.7); MCHC 33.1 g/dl (32.0-35.9); MEAN CELL VOLUME 92.2 fl (80-96); MEAN PLT VOLUME 6.5 fl (7.5-11.1); RBC 3.95 M/mm3 (4.00-5.60); WHITE BLOOD COUNT 5.3 K/mm3 (4.0-10.0)
[2018-10-17 10:39] LABS: PLATELET COUNT 260 K/MM3 (134-434)
[2018-10-17 10:44] LABS: INR 1.22 (0.83-1.09); PROTHROMBIN TIME (PATIENT) 14.4 SEC (9.7-13.0)
[2018-10-17 10:47] LABS: ACTIVATED PTT 39.2 SECONDS (25.2-36.5)
[2018-10-17 10:52] LABS: ALBUMIN 2.8 g/dl (3.4-5.0); ALK PHOS 68 U/L (45-117); ANION GAP 4 MMOL/L (8-16); BILIRUBIN,TOTAL 0.5 mg/dL (0.2-1); BLOOD UREA NITROGEN 10.5 mg/dL (7-18); CALCIUM 8.3 mg/dL (8.5-10.1); CHLORIDE 110 mmol/L (98-107); CO2 28 mmol/L (21-32); CREATININE 0.8 mg/dL (0.55-1.3); GLUCOSE,RANDOM 86 mg/dL (74-106); MAGNESIUM 2.2 mg/dL (1.8-2.4); PHOSPHOROUS 2.3 mg/dL (2.5-4.9); POTASSIUM 4.4 mmol/L (3.5-5.1); SGOT/AST 21 U/L (15-37); SGPT/ALT 34 U/L (13-61); SODIUM 143 mmol/L (136-145); TOT PROT 6.7 g/dl (6.4-8.2)
--- NOTE | 2018-10-17 12:16 | PN ---
Progress Note (short form) - Note Progress Note: c/o RUQ pain. also is hungry requesting to eat. denies CP, SOB, fever, chills, N /V/C/D Current Medications Generic Name Dose Route Start Last Admin Trade Name Freq PRN Reason Stop Dose Admin Acetaminophen 650 mg 10/16/18 18:07 Tylenol - PO Q4H PRN PAIN OR FEVER Atorvastatin Calcium 20 mg 10/16/18 22:00 10/16/18 22:00 Lipitor - PO 20 mg HS JOSELIN Administration Enoxaparin Sodium 120 mg 10/16/18 22:00 10/17/18 10:16 Lovenox - SQ 120 mg BID JOSELIN Administration Metronidazole 500 mg in 100 mls @ 100 mls/hr 10/16/18 18:30 10/17/18 06:30 Flagyl 500mg Premixed Ivpb - IVPB 100 mls/hr Q6H JOSELIN Administration Sodium Chloride 1,000 mls @ 125 mls/hr 10/16/18 20:07 10/16/18 21:07 Normal Saline - IV 125 mls/hr ASDIR JOSELIN Administration Morphine Sulfate 2 mg 10/16/18 18:07 10/17/18 07:59 Morphine Sulfate IVPUSH 2 mg Q4H PRN Administration PAIN LEVEL 7 - 10 Paroxetine HCl 60 mg 10/17/18 10:00 10/17/18 10:17 Paxil - PO 60 mg DAILY JOSELIN Administration Trazodone HCl 100 mg 10/16/18 22:00 10/16/18 22:00 Desyrel - PO 100 mg HS JOSELIN Administration Last Vital Signs Temp Pulse Resp BP Pulse Ox 98.2 F 72 16 91/59 L 96 10/17/18 10:18 10/17/18 10:18 10/17/18 10:18 10/17/18 10:18 10/17/18 10:18 General NAD CV S1 S2 RRR no murmur/rub/gallop Lungs CTA B/L no wheezing/rlaes/rhonchi Abdomen +RUQ pain. enlarged liver +lacy sign Extremiteis +edema B/L CBCD WBC 5.3 K/mm3 (4.0-10.0) 10/17/18 10:16 RBC 3.95 M/mm3 (4.00-5.60) L 10/17/18 10:16 Hgb 12.1 GM/dL (11.7-16.9) 10/17/18 10:16 Hct 36.4 % (35.4-49) 10/17/18 10:16 MCV 92.2 fl (80-96) 10/17/18 10:16 MCHC 33.1 g/dl (32.0-35.9) 10/17/18 10:16 RDW 15.0 % (11.9-15.9) 10/17/18 10:16 Plt Count 260 K/MM3 (134-434) D 10/17/18 10:16 MPV 6.5 fl (7.5-11.1) L 10/17/18 10:16 CMP Sodium 143 mmol/L (136-145) 10/17/18 10:16 Potassium 4.4 mmol/L (3.5-5.1) 10/17/18 10:16 Chloride 110 mmol/L (98-107) H 10/17/18 10:16 Carbon Dioxide 28 mmol/L (21-32) 10/17/18 10:16 Anion Gap 4 MMOL/L (8-16) L 10/17/18 10:16 BUN 10.5 mg/dL (7-18) 10/17/18 10:16 Creatinine 0.8 mg/dL (0.55-1.3) 10/17/18 10:16 Calcium 8.3 mg/dL (8.5-10.1) L 10/17/18 10:16 Total Bilirubin 0.5 mg/dL (0.2-1) 10/17/18 10:16 AST 21 U/L (15-37) 10/17/18 10:16 ALT 34 U/L (13-61) 10/17/18 10:16 Alkaline Phosphatase 68 U/L (45-117) 10/17/18 10:16 Total Protein 6.7 g/dl (6.4-8.2) 10/17/18 10:16 Albumin 2.8 g/dl (3.4-5.0) L 10/17/18 10:16 ASSESSMENT AND PLAN: 62yo M with PMH HTN. mood disorder, DVT diagnosed in May on coumadin, recent diagnosed UTI on bactrim and HCV started on Harvoni presented to the ER wtih generalized weakness, subjective fevers, and RUQ pain that started this AM and found to be septic due to acute cholecystitis 1. Sepsis due to acute cholecystitis-afebrile since initial presentation and tachycardia resolved. looks more comfortable at bedside. cont NPO, IVF, ceftriaxone and flagyl day 2. LFT are normal. LA normalized. Surgery on board. 2. DVT on coumadin-INR subtherapeutic. doppler are negative for DVT. will hold lovenox going forward. will need to f/u with PMD for hypercoag workup as outpatient 3. UTI - was on bactrim. will hold as being on abx that would treat. f/u Cx 4. AAA- 2.6cm. will need outpatient follow up 5. HCV- on Harvoni 6. DVT ppx- lovenox Visit type - Emergency Visit Emergency Visit: Yes ED Registration Date: 10/16/18 Care time: The patient presented to the Emergency Department on the above date and was hospitalized for further evaluation of their emergent condition. - New Patient This patient is new to me today: No - Critical Care Critical Care patient: No - Discharge Referral Referred to [facility] No
[2018-10-17] MEDS ORDERED: CEFTRIAXONE 1 GM/50 ML BAG ONE (12:28)
[2018-10-17] MEDS ORDERED: CEFTRIAXONE 1 GM in DEXTROSE 5%-WATER - 100 ML IVPB SCH (12:30)
[2018-10-17] MEDS ORDERED: NAPH,MB-DB/K PH,MBDB POWDER PACKET PO ONE (13:30)
[2018-10-17] MEDS ORDERED: ACETAMINOPHEN 325 MG TABLET (FP) PO PRN (15:52)
[2018-10-17] MEDS ORDERED: MORPHINE SULFATE 2 MG/ML VIAL IVPUSH PRN (15:52)
[2018-10-17] MEDS: SODIUM CHLORIDE 1,000 ML IV SCH (17:10)
--- NOTE | 2018-10-17 17:29 | CONSULT ---
- Consultation REQUESTING PROVIDER: CONSULT REQUEST: We have been asked to surgically evaluate this patient for ( specify). PCP:Carmenza Grijalva HISTORY OF PRESENT ILLNESS: PMHx: PSHx: Home Medications Medication Instructions Recorded Acetaminophen [Pain Relief] 650 mg PO PRN PRN 10/16/18 Atorvastatin Ca [Lipitor] 20 mg PO HS 10/16/18 Ledipasvir/Sofosbuvir [Harvoni 1 tab PO DAILY 10/16/18 90-400 mg Tablet] Paroxetine HCl [Paxil -] 60 mg PO DAILY 10/16/18 Sulfamethoxazole/Trimethoprim 1 tab PO BID 10/16/18 [Bactrim Ds -] Warfarin Sodium 3 mg PO DAILY 10/16/18 traZODone HCL [Trazodone HCl] 100 mg PO DAILY 10/16/18 Allergies Allergy/AdvReac Type Severity Reaction Status Date / Time No Known Allergies Allergy Verified 10/16/18 09:48 REVIEW OF SYSTEMS: CONSTITUTIONAL: Absent: fever, chills, diaphoresis, generalized weakness, malaise, loss of appetite, weight change CARDIOVASCULAR: Absent: chest pain, syncope, palpitations, irregular heart rate, lightheadedness , peripheral edema RESPIRATORY: Absent: cough, shortness of breath, dyspnea with exertion, wheezing, stridor, hemoptysis GASTROINTESTINAL: Absent: abdominal pain, abdominal distension, nausea, vomiting, diarrhea, constipation, melena, hematochezia GENITOURINARY: Absent: dysuria, frequency, urgency, hesitancy, hematuria, flank pain, genital pain MUSCULOSKELETAL: Absent: myalgia, arthralgia, joint swelling, back pain, neck pain SKIN: Absent: rash, itching, pallor HEMATOLOGIC/IMMUNOLOGIC: Absent: easy bleeding, easy bruising, lymphadenopathy NEUROLOGIC: Absent: headache, focal weakness, paresthesias, dizziness, unsteady gait, seizure, mental status changes, bladder or bowel incontinence PSYCHIATRIC: Absent: anxiety, depression, suicidal or homicidal ideation, hallucinations. PHYSICAL EXAM: GENERAL: Awake, alert, and fully oriented, in no acute distress. HEAD: Normal with no signs of trauma. EYES: PERRL, sclera anicteric, conjunctiva clear. NECK: Normal ROM, supple without lymphadenopathy, JVD, or masses. LUNGS: Clear to auscultation bilat anteriorly. No wheezes, and no crackles. No accessory muscle use. HEART: Regular rate and rhythm. No murmurs ABDOMEN: Soft, nontender, not distended, normoactive bowel sounds, no guarding, no rebound, no masses. No organomegaly. MUSCULOSKELETAL: Normal ROM at all joints. No bony deformities or tenderness. No CVA tenderness. UPPER EXTREMITIES: 2+ pulses, warm, well-perfused. No cyanosis. Cap refill <2 seconds. No peripheral edema. LOWER EXTREMITIES: 2+ pulses, warm, well-perfused. No calf tenderness. No peripheral edema. NEUROLOGICAL: Normal speech, gait not observed. PSYCH: Cooperative. Good eye contact. Appropriate mood and affect. SKIN: Warm, dry, normal turgor, no rashes or lesions noted. Vital Signs Temperature 98.2 F 10/17/18 15:00 Pulse Rate 81 10/17/18 15:00 Respiratory Rate 16 10/17/18 15:00 Blood Pressure 121/78 10/17/18 15:00 O2 Sat by Pulse Oximetry (%) 96 10/17/18 10:18 Lab Results WBC 5.3 K/mm3 (4.0-10.0) 10/17/18 10:16 RBC 3.95 M/mm3 (4.00-5.60) L 10/17/18 10:16 Hgb 12.1 GM/dL (11.7-16.9) 10/17/18 10:16 Hct 36.4 % (35.4-49) 10/17/18 10:16 MCV 92.2 fl (80-96) 10/17/18 10:16 MCHC 33.1 g/dl (32.0-35.9) 10/17/18 10:16 RDW 15.0 % (11.9-15.9) 10/17/18 10:16 Plt Count 260 K/MM3 (134-434) D 10/17/18 10:16 Sodium 143 mmol/L (136-145) 10/17/18 10:16 Potassium 4.4 mmol/L (3.5-5.1) 10/17/18 10:16 Chloride 110 mmol/L (98-107) H 10/17/18 10:16 Carbon Dioxide 28 mmol/L (21-32) 10/17/18 10:16 Anion Gap 4 MMOL/L (8-16) L 10/17/18 10:16 BUN 10.5 mg/dL (7-18) 10/17/18 10:16 Creatinine 0.8 mg/dL (0.55-1.3) 10/17/18 10:16 Random Glucose 86 mg/dL (74-106) 10/17/18 10:16 Calcium 8.3 mg/dL (8.5-10.1) L 10/17/18 10:16 INR 1.22 (0.83-1.09) H 10/17/18 10:16 IMP: acute cholecystitis PLAN: Suggest NPO/IVF/IVABS/will need lap michelle possible open 10/19 h/e most like;y 10/20/18; d/w the patient who is amenable to same and will give informed consent. Paresh Oseguera MD FACS
[2018-10-17] MEDS ORDERED: traZODone HCL 50 MG TABLET (FP) ONE (21:16)
[2018-10-17] MEDS: traZODone HCL 100 MG TABLET (FP) PO SCH (21:48)
[2018-10-17] MEDS: ATORVASTATIN CA 20 MG TABLET (FP) PO SCH (21:48)
[2018-10-18] MEDS: SODIUM CHLORIDE 1,000 ML IV SCH ×3 (01:47→18:41)
[2018-10-18 06:54] LABS: ALBUMIN 2.7 g/dl (3.4-5.0); BILIRUBIN,TOTAL 0.6 mg/dL (0.2-1); BLOOD UREA NITROGEN 10.7 mg/dL (7-18); CREATININE 0.7 mg/dL (0.55-1.3); PHOSPHOROUS 1.9 mg/dL (2.5-4.9); POTASSIUM 4.2 mmol/L (3.5-5.1); TOT PROT 6.6 g/dl (6.4-8.2)
[2018-10-18] MEDS: PARoxetine HCL 20 MG TABLET PO SCH (09:54)
[2018-10-18] MEDS ORDERED: ENOXAPARIN NA (PORCINE) 40 MG/0.4 ML DISP.SYRIN SQ SCH (10:00)
[2018-10-18] MEDS ORDERED: cefTRIAXone SODIUM 1 GM VIAL ONE (10:01)
[2018-10-18] MEDS ORDERED: DEXTROSE 5%-WATER - 50 ML IVPB ONE (10:01)
[2018-10-18] MEDS: CEFTRIAXONE 1 GM in DEXTROSE 5%-WATER - 50 ML IVPB SCH (11:13)
--- NOTE | 2018-10-18 12:02 | PN ---
Teaching Attending Note Name of Resident: Kaitlin Ortiz ATTENDING PHYSICIAN STATEMENT I saw and evaluated the patient. I reviewed the resident's note and discussed the case with the resident. I agree with the resident's findings and plan as documented. SUBJECTIVE:pain much improved. requesting to eat. denies Cp, SOB, fever, chills , N/V/C/D OBJECTIVE: Last Vital Signs Temp Pulse Resp BP Pulse Ox 97.9 F 66 18 103/65 96 10/18/18 02:00 10/18/18 02:00 10/18/18 02:00 10/18/18 02:00 10/17/18 10:18 General NAD CV S1 S2 RRR no murmur/rub/gallop Lungs CTA B/L no wheezing/rales/rhonchi Abdomen soft + lacy sign extremities no pedal edema ASSESSMENT AND PLAN: 62yo M with PMH HTN. mood disorder, DVT diagnosed in May on coumadin, recent diagnosed UTI on bactrim and HCV started on Harvoni presented to the ER wtih generalized weakness, subjective fevers, and RUQ pain that started this AM and found to be septic due to acute cholecystitis 1. Sepsis due to acute cholecystitis-afebrile. clinically improved. NPO,IVF, ceftriaxone and flagyl day 3. defer to advance diet per surgeon. NPO for surgery tomorrow. 2. DVT on coumadin-INR subtherapeutic. doppler are negative for DVT.already completed >3months of anticoagulation. recommending following up with PMD for hypercoagability workup. 3. Hypophosphatemia- neutraphos 4. UTI - was on bactrim. will hold as being on abx that would treat. f/u Cx 5. AAA- 2.6cm. will need outpatient follow up 6. HCV- on Harvoni 7. DVT ppx- lovenox
--- NOTE | 2018-10-18 12:05 | PN ---
Physical Exam: SUBJECTIVE: Patient seen and examined. Pt is very hungry & would like to eat; I explained importance of NPO pre-procedure & he understands. C/o mild pain to RUQ. Pending OR tomorrow for lap michelle. OBJECTIVE: Vital Signs Period Temp Pulse Resp BP Sys/Esquivel Pulse Ox Last 24 Hr 97.9 F-98.2 F 66-81 14-18 95-128/50-78 GENERAL: AOx3, in no acute distress. HEENT: No lymphadenopathy noted LUNGS: CTABL. No incr work of breathing. No wheezing/ crackling on exam HEART: Regular rate and rhythm, S1, S2 heard no murmurs ABDOMEN: + hepatomegaly. + Mason sign. Soft, nondistended, + bowel sounds. EXTREMITIES: 2+ pulses, warm, well-perfused. 1+ edema/ b/l LE. Laboratory Results - last 24 hr 10/18/18 05:50 Sodium 141 Potassium 4.2 Chloride 109 H Carbon Dioxide 25 Anion Gap 6 L BUN 10.7 Creatinine 0.7 Est GFR (CKD-EPI)AfAm 117.22 Est GFR (CKD-EPI)NonAf 101.14 Random Glucose 76 Calcium 8.0 L Phosphorus 1.9 L Total Bilirubin 0.6 AST 19 ALT 27 Alkaline Phosphatase 66 Total Protein 6.6 Albumin 2.7 L Active Medications Generic Name Dose Route Start Last Admin Trade Name Freq PRN Reason Stop Dose Admin Acetaminophen 650 mg 10/17/18 15:52 Tylenol - PO Q4H PRN PAIN OR FEVER Atorvastatin Calcium 20 mg 10/16/18 22:00 10/17/18 21:48 Lipitor - PO 20 mg HS JOSELIN Administration Enoxaparin Sodium 40 mg 10/18/18 10:00 10/18/18 09:53 Lovenox - SQ 40 mg DAILY JOSELIN Administration Metronidazole 500 mg in 100 mls @ 100 mls/hr 10/17/18 21:00 10/18/18 09:54 Flagyl 500mg Premixed Ivpb - IVPB 100 mls/hr Q6H-IV JOSELIN Administration Sodium Chloride 1,000 mls @ 125 mls/hr 10/17/18 15:52 10/18/18 08:59 Normal Saline - IV 125 mls/hr ASDIR JOSELIN Administration Ceftriaxone Sodium 1 gm/ 50 mls @ 100 mls/hr 10/18/18 10:00 10/18/18 11:13 Dextrose IVPB 100 mls/hr DAILY JOSELIN Administration Protocol Morphine Sulfate 2 mg 10/17/18 15:52 Morphine Sulfate IVPUSH Q4H PRN PAIN LEVEL 7 - 10 Paroxetine HCl 60 mg 10/17/18 10:00 10/18/18 09:54 Paxil - PO 60 mg DAILY JOSELIN Administration Trazodone HCl 100 mg 10/16/18 22:00 10/17/18 21:48 Desyrel - PO 100 mg HS JOSELIN Administration CT abd pel: Cholelithiasis is noted without sonographic evidence of acute cholecystitis. The common bile duct is not adequately visualized due to obscuring bowel gas. No biliary tract dilatation was described on CT performed earlier the same date. The infrarenal aorta is obscured on the current exam due to bowel gas. 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 Correlation with 2 month follow-up contrast enhanced CT is suggested to evaluate stability. ASSESSMENT/PLAN: 62 y.o. M PMH HTN, HLD, DVT RLE (diagnosed 05/2018, was on warfarin but recently d/c'd d/t neg DVT study while admitted here), OA, mood d/o, HCV (On Harvoni tx) , recent UTI s/p Bactrim. Presented with 10/10 RUQ pain, R flank pain nausea and fatigue. #Sepsis 2/2 acute cholecystitis -Febrile to 101F on adm, currently afebrile -Tachy to 114 on adm, currently normocardic -CTA abd/ pel shows 6mm gallstone @ GB neck -Surgery (Dr. 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 I reviewed the resident's note and discussed the case with the resident. I agree with the resident's findings and plan as documented. SUBJECTIVE: OBJECTIVE: ASSESSMENT AND PLAN:
[2018-10-18 12:35] VITALS: BMI 39.9
[2018-10-18] MEDS ORDERED: traZODone HCL 50 MG TABLET (FP) ONE (21:06)
[2018-10-18] MEDS: traZODone HCL 100 MG TABLET (FP) PO SCH (21:33)
[2018-10-18] MEDS: ATORVASTATIN CA 20 MG TABLET (FP) PO SCH (21:33)
[2018-10-19 07:42] LABS: BASO % 0.2 % (0-2.0); EOS % 4.1 % (0-4.5); HEMATOCRIT 37.4 % (35.4-49); HEMOGLOBIN 12.8 GM/dL (11.7-16.9); LYMPH % 29.6 % (8-40); MCH 30.9 pg (25.7-33.7); MCHC 34.1 g/dl (32.0-35.9); MEAN CELL VOLUME 90.5 fl (80-96); MEAN PLT VOLUME 6.8 fl (7.5-11.1); MONO % 8.8 % (3.8-10.2); NEUT % 57.3 % (42.8-82.8); PLATELET COUNT 285 K/MM3 (134-434); RBC 4.13 M/mm3 (4.00-5.60); RDW 14.8 % (11.9-15.9)
[2018-10-19 07:44] LABS: ALBUMIN 2.8 g/dl (3.4-5.0); BILIRUBIN,TOTAL 0.5 mg/dL (0.2-1); BLOOD UREA NITROGEN 6.8 mg/dL (7-18); CALCIUM 8.1 mg/dL (8.5-10.1); CREATININE 0.8 mg/dL (0.55-1.3); MAGNESIUM 2.2 mg/dL (1.8-2.4); PHOSPHOROUS 1.8 mg/dL (2.5-4.9); POTASSIUM 3.6 mmol/L (3.5-5.1); TOT PROT 7.2 g/dl (6.4-8.2)
[2018-10-19 07:48] LABS: INR 1.11 (0.83-1.09); PROTHROMBIN TIME (PATIENT) 13.1 SEC (9.7-13.0)
[2018-10-19 07:51] LABS: ACTIVATED PTT 33.9 SECONDS (25.2-36.5)
[2018-10-19] MEDS ORDERED: DEXTROSE 5%-WATER - 50 ML IVPB ONE (08:48)
[2018-10-19] MEDS ORDERED: cefTRIAXone SODIUM 1 GM VIAL ONE (08:48)
[2018-10-19] MEDS: CEFTRIAXONE 1 GM in DEXTROSE 5%-WATER - 50 ML IVPB SCH (09:01)
[2018-10-19] MEDS: PARoxetine HCL 20 MG TABLET PO SCH (09:02)
[2018-10-19] MEDS ORDERED: BUPIVACAINE HCL/PF 0.5% (5 MG/ML) 30 ML VIAL IJ ONE ×2 (13:11→14:30)
[2018-10-19] MEDS ORDERED: MIDAZOLAM HCL 2 MG/2 ML SINGLE DOSE VIAL ONE (14:20)
[2018-10-19] MEDS ORDERED: fentaNYL CITRATE 250 MCG/5 ML VIAL ONE (14:20)
[2018-10-19] MEDS ORDERED: LIDOCAINE HCL/PF 2% SDV 5ML VIAL ONE (14:20)
[2018-10-19] MEDS ORDERED: PROPOFOL 20 ML ONE ×2 (14:20)
[2018-10-19] MEDS ORDERED: ROCURONIUM BROMIDE 50 MG/5 ML SYRINGE ONE ×2 (14:20→15:50)
[2018-10-19] MEDS ORDERED: NAPH,MB-DB/K PH,MBDB POWDER PACKET PO ONE ×2 (14:57→17:11)
--- NOTE | 2018-10-19 14:57 | PN ---
Teaching Attending Note Name of Resident: Ayala Ceballos ATTENDING PHYSICIAN STATEMENT I saw and evaluated the patient. I reviewed the resident's note and discussed the case with the resident. I agree with the resident's findings and plan as documented. SUBJECTIVE:tolerating liquid diet. pain is improved. denies CP, SOB, fever, chills, N/V/C/D OBJECTIVE: Last Vital Signs Temp Pulse Resp BP Pulse Ox 98.3 F 69 20 136/71 96 10/19/18 05:57 10/19/18 05:57 10/19/18 05:57 10/19/18 05:57 10/18/18 21:00 General NAD CV S1 S2 RRR no murmur/rub/gallop Lungs CTA B/L no wheezing/rales/rhonchi Abdomen soft + lacy sign ASSESSMENT AND PLAN: 62yo M with PMH HTN. mood disorder, DVT diagnosed in May on coumadin, recent diagnosed UTI on bactrim and HCV started on Harvoni presented to the ER wtih generalized weakness, subjective fevers, and RUQ pain that started this AM and found to be septic due to acute cholecystitis 1. Sepsis due to acute cholecystitis-afebrile. clinically improved. NPO for laprascopic cholecsytectomy today cont IVF, ceftriaxone and flagyl day 4.follow up operative report. further recommendations per surgery. 2. DVT on coumadin-INR subtherapeutic. doppler are negative for DVT.already completed >3months of anticoagulation. recommending following up with PMD for hypercoagability workup. 3. Hypophosphatemia- neutraphos 4. UTI - was on bactrim. will hold as being on abx that would treat. f/u Cx 5. AAA- 2.6cm. will need outpatient follow up 6. HCV- on Harvoni 7. DVT ppx- lovenox
[2018-10-19] MEDS ORDERED: DEXAMETHASONE SOD PHOSPHATE 4 MG/1 ML VIAL ONE (14:58)
[2018-10-19] MEDS ORDERED: NEOSTIGMINE METHYLSULFATE 0.5 MG/ML - 10 ML MDV ONE (15:17)
[2018-10-19] MEDS ORDERED: GLYCOPYRROLATE 0.2 MG/1 ML VIAL ONE (15:18)
[2018-10-19] MEDS ORDERED: KETOROLAC TROMETHAMINE 30 MG/1 ML VIAL ONE (16:09)
[2018-10-19] MEDS ORDERED: oxyCODONE HCL 5 MG TABLET PO PRN (16:27)
--- NOTE | 2018-10-19 16:49 | OP ---
Operative Note - Note: Operative Date: 10/19/18 Pre-Operative Diagnosis: symptomatic cholelithiasis Operation: laparoscopic cholecystitis Post-Operative Diagnosis: Same as Pre-op Surgeon: Paresh Oseguera Supervisor Testing: Elsa Taveras Anesthesiologist/DIRECTOR GEOTHERMAL OPERATIONS: Edna Francois Anesthesia: General, Local Specimens Removed: gallbladder Estimated Blood Loss (mls): 50 Drains & Tubes with Location: DMITRIY RLQ Fluid Volume Replaced (mls): 800 Operative Report Dictated: Yes
[2018-10-19] MEDS ORDERED: ONDANSETRON 4 MG/2 ML VIAL IVPUSH PRN (16:50)
[2018-10-19] MEDS ORDERED: ACETAMINOPHEN 1000 MG/100 ML VIAL (NON FORMULARY) IVPB ONE (16:51)
--- NOTE | 2018-10-19 16:52 | SURG ---
Surgery Boiling Tub Operator Note Boiling Tub Operator: Elsa Taveras PA-C Date of Service: 10/19/18 Diagnosis: symptomatic cholelithiasis Procedure: laparoscopic cholecystitis I was present for the entirety of the operative procedure. For further detail, please refer to operative report. Visit type - Case Type Case Type: ED Admission - Emergency Emergency Visit: Yes ED Registration Date: 10/16/18 Care time: The patient presented to the Emergency Department on the above date and was hospitalized for further evaluation of their emergent condition. - New patient This patient is new to me today: Yes Date on this admission: 10/19/18
[2018-10-19] MEDS ORDERED: ACETAMINOPHEN INJECTION 100 ML IVPB ONE (16:58)
[2018-10-19] MEDS ORDERED: MORPHINE SULFATE 2 MG/ML VIAL IVPUSH PRN (17:11)
[2018-10-19] MEDS ORDERED: ACETAMINOPHEN 325 MG TABLET (FP) PO PRN (17:11)
--- NOTE | 2018-10-19 18:24 | PN ---
Physical Exam: SUBJECTIVE: Patient seen and examined. No acute events overnight. Pt was NPO for michelle today. He reports RUQ and LUQ pain when he presses against it. He had one loose stool overnight with no blood or dark color. OBJECTIVE: Vital Signs Period Temp Pulse Resp BP Sys/Esquivel Pulse Ox Last 24 Hr 97.8 F-98.3 F 62-88 14-20 111-143/65-86 93-99 GENERAL: The patient is awake, alert, and fully oriented, in no acute distress. HEAD: Normal with no signs of trauma. EYES: PERRL, extraocular movements intact, sclera anicteric, conjunctiva clear. No ptosis. ENT: Ears normal, nares patent, moist mucous membranes. NECK: Trachea midline, full range of motion, supple. LUNGS: Breath sounds equal, clear to auscultation bilaterally, no wheezes, no crackles, no accessory muscle use. HEART: Regular rate and rhythm, S1, S2 without murmur, rub or gallop. ABDOMEN: Soft, tender when palpated to RUQ and LUQ, nondistended, normoactive bowel sounds, no guarding, no rebound EXTREMITIES: 2+ pulses, warm, well-perfused, no edema. NEUROLOGICAL: Cranial nerves II through XII grossly intact. Normal speech, gait not observed. PSYCH: Normal mood, normal affect. SKIN: Warm, dry, normal turgor, no rashes or lesions noted Laboratory Results - last 24 hr 10/19/18 10/19/18 10/19/18 06:55 06:55 06:55 WBC 5.0 RBC 4.13 Hgb 12.8 Hct 37.4 MCV 90.5 MCH 30.9 MCHC 34.1 RDW 14.8 Plt Count 285 MPV 6.8 L Absolute Neuts (auto) 2.9 Neutrophils % 57.3 D Lymphocytes % 29.6 D Monocytes % 8.8 Eosinophils % 4.1 Basophils % 0.2 Nucleated RBC % 0 PT with INR 13.10 H INR 1.11 H PTT (Actin FS) 33.9 Sodium 141 Potassium 3.6 Chloride 111 H Carbon Dioxide 24 Anion Gap 6 L BUN 6.8 L Creatinine 0.8 Est GFR (CKD-EPI)AfAm 110.96 Est GFR (CKD-EPI)NonAf 95.74 Random Glucose 91 Calcium 8.1 L Phosphorus 1.8 L Magnesium 2.2 Total Bilirubin 0.5 AST 17 ALT 26 Alkaline Phosphatase 72 Total Protein 7.2 Albumin 2.8 L Active Medications Generic Name Dose Route Start Last Admin Trade Name Freq PRN Reason Stop Dose Admin Acetaminophen 650 mg 10/19/18 17:11 Tylenol - PO Q4H PRN PAIN OR FEVER Atorvastatin Calcium 20 mg 10/19/18 22:00 Lipitor - PO HS [facility] Enoxaparin Sodium 40 mg 10/20/18 10:00 Lovenox - SQ DAILY [facility] Fentanyl 50 mcg 10/19/18 16:50 10/19/18 17:25 Sublimaze Injection - IVPUSH 50 mcg [id number] PRN Administration PAIN-PACU ORDER X 4 DOSES ONLY Ceftriaxone Sodium 1 gm/ 50 mls @ 100 mls/hr 10/20/18 10:00 Dextrose IVPB DAILY [facility] Protocol Metronidazole 500 mg in 100 mls @ 100 mls/hr 10/19/18 21:00 Flagyl 500mg Premixed Ivpb - IVPB Q6H-IV [facility] Sodium Chloride 1,000 mls @ 125 mls/hr 10/19/18 17:11 Normal Saline - IV ASDIR [facility] Morphine Sulfate 2 mg 10/19/18 17:11 Morphine Sulfate IVPUSH Q4H PRN PAIN LEVEL 7 - 10 Ondansetron HCl 4 mg 10/19/18 16:50 Zofran Injection IVPUSH Q6H PRN NAUSEA AND/OR VOMITING Oxycodone HCl 5 mg 10/19/18 16:27 Roxicodone - PO Q4H PRN PAIN LEVEL 6-10 Paroxetine HCl 60 mg 10/20/18 10:00 Paxil - PO DAILY [facility] Trazodone HCl 100 mg 10/19/18 22:00 Desyrel - PO [facility] ASSESSMENT/PLAN: Mr. Alcocer is a 62yo male with HLD, hx DVT R leg on warfarin, mood disorder, osteoarthritis, hepatitis C on Harvoni who presents with abdominal pain and weakness. U/S found cholelithiasis. #cholelithiasis/acute cholecystitis -lap michelle today -recheck CMP in morning -pain control with morphine and oxycodone -ceftriaxone and flagyl -nausea control with Zofran #HLD -continue atorvastatin #hx DVT on warfarin at admission -warfarin held -Lovenox 40mg Q daily #mood disorder -continue Paxil FEN NS monitor electrolytes clear liquids DVT Ppe Lovenox Visit type - Emergency Visit Emergency Visit: Yes ED Registration Date: 10/16/18 Care time: The patient presented to the Emergency Department on the above date and was hospitalized for further evaluation of their emergent condition. - New Patient This patient is new to me today: Yes Date on this admission: 10/19/18 - Critical Care Critical Care patient: No - Discharge Referral Referred to [facility] No ATTENDING PHYSICIAN STATEMENT I saw and evaluated the patient. I reviewed the resident's note and discussed the case with the resident. I agree with the resident's findings and plan as documented. SUBJECTIVE: OBJECTIVE: ASSESSMENT AND PLAN:
[2018-10-19] MEDS ORDERED: traZODone HCL 50 MG TABLET (FP) ONE (21:40)
[2018-10-19] MEDS: ATORVASTATIN CA 20 MG TABLET (FP) PO SCH (21:42)
[2018-10-19] MEDS: traZODone HCL 100 MG TABLET (FP) PO SCH (21:43)
[2018-10-19] MEDS ORDERED: PT OWN MED DRAWER 7, Y5N ONE (21:56)
[2018-10-20] MEDS: SODIUM CHLORIDE 1,000 ML IV SCH ×2 (03:11→17:11)
[2018-10-20 07:45] LABS: ALBUMIN 2.7 g/dl (3.4-5.0); BILIRUBIN,TOTAL 0.4 mg/dL (0.2-1); BLOOD UREA NITROGEN 6.6 mg/dL (7-18); CALCIUM 7.9 mg/dL (8.5-10.1); CREATININE 0.8 mg/dL (0.55-1.3); POTASSIUM 4.4 mmol/L (3.5-5.1); TOT PROT 6.6 g/dl (6.4-8.2)
[2018-10-20 08:06] LABS: BASO % 0.3 % (0-2.0); EOS % 0.2 % (0-4.5); HEMATOCRIT 36.6 % (35.4-49); HEMOGLOBIN 12.2 GM/dL (11.7-16.9); LYMPH % 19.5 % (8-40); MCH 30.6 pg (25.7-33.7); MCHC 33.3 g/dl (32.0-35.9); MEAN PLT VOLUME 6.9 fl (7.5-11.1); MONO % 7.7 % (3.8-10.2); NEUT % 72.3 % (42.8-82.8); PLATELET COUNT 284 K/MM3 (134-434); RBC 3.98 M/mm3 (4.00-5.60); RDW 14.6 % (11.9-15.9); WHITE BLOOD COUNT 7.2 K/mm3 (4.0-10.0)
--- NOTE | 2018-10-20 08:32 | PN ---
Progress Note (short form) - Note Progress Note: Anesthesiology Post-op 62 y.o. man POD #1 s/p Laparoscopic Cholecystectomy under GA. Pt. doing well this AM. Pain well-controlled with meds. VSS. No apparent anesthesia-related issues. 62 y.o. with stable post-operative course. Continue management as per primary team.
--- NOTE | 2018-10-20 08:35 | PN ---
Progress Note (short form) - Note Progress Note: POD #1 s/p Lap Cholecystectomy Alert. No acute events since surgery per RN notes. C/o incisional tenderness. Adequate pain management with meds ordered. OOB w/ cane assist. Voiding spontaneously. Denies n/v/f/c, CP, palpitations, SOB or CORDERO. AVSS. Afeb. Gen: nad ABD: all surgical ports c/d/i. DMITRIY 30mL (serosang) LE: soft, supple. NT bilat Problem List - Problems (1) Cholecystitis Assessment/Plan: POD #1 s/p Lap michelle f/u LFTs, if normal we will pull DMITRIY later today. Diet as tolerated. Pain management PRN Incentive spirometer Cont medical management Code(s): K81.9 - CHOLECYSTITIS, UNSPECIFIED
[2018-10-20] MEDS ORDERED: cefTRIAXone SODIUM 1 GM VIAL ONE (09:34)
[2018-10-20] MEDS ORDERED: DEXTROSE 5%-WATER - 50 ML IVPB ONE (09:35)
[2018-10-20] MEDS: CEFTRIAXONE 1 GM in DEXTROSE 5%-WATER - 50 ML IVPB SCH (09:44)
[2018-10-20] MEDS: PARoxetine HCL 20 MG TABLET PO SCH (09:45)
[2018-10-20 09:52] LABS: BILIRUBIN,DIRECT 0.2 mg/dL (0.0-0.2)
[2018-10-20] MEDS ORDERED: ENOXAPARIN NA (PORCINE) 40 MG/0.4 ML DISP.SYRIN SQ SCH (10:00)
--- NOTE | 2018-10-20 16:27 | PN ---
Teaching Attending Note Name of Resident: Ayala Ceballos ATTENDING PHYSICIAN STATEMENT I saw and evaluated the patient. I reviewed the resident's note and discussed the case with the resident. I agree with the resident's findings and plan as documented. SUBJECTIVE: Patient is feeling better s/p POD#1 , s/p removal of the drainage today. OBJECTIVE: Vital Signs Temperature 98.5 F 10/20/18 13:59 Pulse Rate 61 10/20/18 13:59 Respiratory Rate 16 10/20/18 09:00 Blood Pressure 124/81 10/20/18 13:59 O2 Sat by Pulse Oximetry (%) 98 10/20/18 09:00 GENERAL: The patient is awake, alert, and fully oriented, in no acute distress. HEAD: Normal with no signs of trauma. EYES: PERRL, extraocular movements intact, sclera anicteric, conjunctiva clear. No ptosis. ENT: Ears normal, nares patent, oropharynx clear without exudates, moist mucous membranes. NECK: Trachea midline, full range of motion, supple. LUNGS: Breath sounds equal, clear to auscultation bilaterally, no wheezes, no crackles, no accessory muscle use. HEART: Regular rate and rhythm, S1, S2 without murmur, rub or gallop. ABDOMEN: Soft, mild tenderness surgical incision site, ND, normoactive bowel sounds, no guarding, no rebound, no hepatosplenomegaly, no masses. EXTREMITIES: 2+ pulses, warm, well-perfused, no edema. NEUROLOGICAL: Cranial nerves II through XII grossly intact. Normal speech, gait not observed. PSYCH: Normal mood, normal affect. SKIN: Warm, dry, normal turgor, no rashes or lesions noted CBCD WBC 7.2 K/mm3 (4.0-10.0) 10/20/18 06:31 RBC 3.98 M/mm3 (4.00-5.60) L 10/20/18 06:31 Hgb 12.2 GM/dL (11.7-16.9) 10/20/18 06:31 Hct 36.6 % (35.4-49) 10/20/18 06:31 MCV 92.0 fl (80-96) 10/20/18 06:31 MCHC 33.3 g/dl (32.0-35.9) 10/20/18 06:31 RDW 14.6 % (11.9-15.9) 10/20/18 06:31 Plt Count 284 K/MM3 (134-434) 10/20/18 06:31 MPV 6.9 fl (7.5-11.1) L 10/20/18 06:31 CMP Sodium 142 mmol/L (136-145) 10/20/18 06:31 Potassium 4.4 mmol/L (3.5-5.1) 10/20/18 06:31 Chloride 110 mmol/L (98-107) H 10/20/18 06:31 Carbon Dioxide 27 mmol/L (21-32) 10/20/18 06:31 Anion Gap 5 MMOL/L (8-16) L 10/20/18 06:31 BUN 6.6 mg/dL (7-18) L 10/20/18 06:31 Creatinine 0.8 mg/dL (0.55-1.3) 10/20/18 06:31 Random Glucose 96 mg/dL (74-106) 10/20/18 06:31 Calcium 7.9 mg/dL (8.5-10.1) L 10/20/18 06:31 Total Bilirubin 0.4 mg/dL (0.2-1) 10/20/18 06:31 AST 28 U/L (15-37) 10/20/18 06:31 ALT 30 U/L (13-61) 10/20/18 06:31 Alkaline Phosphatase 63 U/L (45-117) 10/20/18 06:31 Total Protein 6.6 g/dl (6.4-8.2) 10/20/18 06:31 Albumin 2.7 g/dl (3.4-5.0) L 10/20/18 06:31 CARDIAC ENZYMES Troponin I < 0.02 ng/ml (0.00-0.05) 10/17/18 10:16 Current Medications Generic Name Dose Route Start Last Admin Trade Name Freq PRN Reason Stop Dose Admin Acetaminophen 650 mg 10/19/18 17:11 Tylenol - PO Q4H PRN PAIN OR FEVER Atorvastatin Calcium 20 mg 10/19/18 22:00 10/19/18 21:42 Lipitor - PO 20 mg HS JOSELIN Administration Enoxaparin Sodium 40 mg 10/20/18 10:00 10/20/18 09:46 Lovenox - SQ 40 mg DAILY JOSELIN Administration Ceftriaxone Sodium 1 gm/ 50 mls @ 100 mls/hr 10/20/18 10:00 10/20/18 09:44 Dextrose IVPB 100 mls/hr DAILY JOSELIN Administration Protocol Metronidazole 500 mg in 100 mls @ 100 mls/hr 10/19/18 21:00 10/20/18 09:46 Flagyl 500mg Premixed Ivpb - IVPB 100 mls/hr Q6H-IV JOSELIN Administration Sodium Chloride 1,000 mls @ 125 mls/hr 10/19/18 17:11 10/20/18 03:11 Normal Saline - IV 125 mls/hr ASDIR JOSELIN Administration Morphine Sulfate 2 mg 10/19/18 17:11 Morphine Sulfate IVPUSH Q4H PRN PAIN LEVEL 7 - 10 Ondansetron HCl 4 mg 10/19/18 16:50 Zofran Injection IVPUSH Q6H PRN NAUSEA AND/OR VOMITING Oxycodone HCl 5 mg 10/19/18 16:27 10/20/18 09:46 Roxicodone - PO 5 mg Q4H PRN Administration PAIN LEVEL 6-10 Paroxetine HCl 60 mg 10/20/18 10:00 10/20/18 09:45 Paxil - PO 60 mg DAILY JOSELIN Administration Trazodone HCl 100 mg 10/19/18 22:00 10/19/18 21:43 Desyrel - PO 100 mg HS JOSELIN Administration Home Medications Medication Instructions Recorded Acetaminophen [Pain Relief] 650 mg PO PRN PRN 10/16/18 Atorvastatin Ca [Lipitor] 20 mg PO HS 10/16/18 Ledipasvir/Sofosbuvir [Harvoni 1 tab PO DAILY 10/16/18 90-400 mg Tablet] Paroxetine HCl [Paxil -] 60 mg PO DAILY 10/16/18 Warfarin Sodium 3 mg PO DAILY 10/16/18 traZODone HCL [Trazodone HCl] 100 mg PO DAILY 10/16/18 ASSESSMENT AND PLAN: Patient is a 62yo M with PMHx HTN, mood disorder, DVT diagnosed in May on coumadin, recent diagnosed UTI on bactrim and HCV started on Harvoni presented to the ER wtih generalized weakness, subjective fevers, and RUQ pain and was found to have sepsis/ acute cholecystitis. # POD #1 s/p lap. chol. s/p sepsis due to acute cholecystitis , was on rocephin and flagyl prior to surgery and post op, improved, drainage was removed today. patient improved, no further pain, only to the incision site. Patient will follow up with sx upon with surgery. #PMHx of DVT; duplex is negative , will discontinue coumadin, this is his 1st DVT. doppler are negative for DVT, and completed >3months of anticoagulation. hypercoaguable w/u with PMD. # Hypophosphatemia- neutraphos, follow cmp , phos and mag level as an outpatient , will discharge him 4 doses of neutra phos. # Hx of UTI - s/p bactrim, and IV Rocephin ,urine cx is negative # AAA- 2.6cm. will need outpatient follow up # HCV- on Nabila
--- NOTE | 2018-10-20 18:44 | DS ---
Physical Exam: SUBJECTIVE: Patient seen and examined. Reports abdominal "discomfort" but is not requiring narcotics. He denies n/v, fever, chills, SOB, and chest pain. He has tolerated liquid diet overnight. OBJECTIVE: Vital Signs Period Temp Pulse Resp BP Sys/Esquivel Pulse Ox Last 24 Hr 97 F-98.5 F 60-82 16-20 124-138/77-88 97-98 PHYSICAL EXAM GENERAL: The patient is awake, alert, and fully oriented, in no acute distress. HEAD: Normal with no signs of trauma. EYES: PERRL, extraocular movements intact, sclera anicteric, conjunctiva clear. ENT: Ears normal, nares patent, moist mucous membranes. NECK: Trachea midline, full range of motion, supple. LUNGS: Breath sounds equal, clear to auscultation bilaterally, no wheezes, no crackles, no accessory muscle use. HEART: Regular rate and rhythm, S1, S2 without murmur, rub or gallop. ABDOMEN: Soft, tender to palpation in all quadrants, more tender near drain. Serosanguineous fluid in drain, nondistended, normoactive bowel sounds, no erythema surrounding incisions and drain EXTREMITIES: 2+ pulses, warm, well-perfused, minimal edema. NEUROLOGICAL: Cranial nerves II through XII grossly intact. Normal speech, gait not observed. PSYCH: Normal mood, normal affect. SKIN: Warm, dry, normal turgor, no rashes or lesions noted. LABS Laboratory Results - last 24 hr 10/20/18 10/20/18 06:31 06:31 WBC 7.2 RBC 3.98 L Hgb 12.2 Hct 36.6 MCV 92.0 MCH 30.6 MCHC 33.3 RDW 14.6 Plt Count 284 MPV 6.9 L Absolute Neuts (auto) 5.2 Neutrophils % 72.3 D Lymphocytes % 19.5 D Monocytes % 7.7 Eosinophils % 0.2 D Basophils % 0.3 Nucleated RBC % 0 Sodium 142 Potassium 4.4 Chloride 110 H Carbon Dioxide 27 Anion Gap 5 L BUN 6.6 L Creatinine 0.8 Est GFR (CKD-EPI)AfAm 110.96 Est GFR (CKD-EPI)NonAf 95.74 Random Glucose 96 Calcium 7.9 L Total Bilirubin 0.4 Direct Bilirubin 0.2 AST 28 ALT 30 Alkaline Phosphatase 63 Total Protein 6.6 Albumin 2.7 L HOSPITAL COURSE: Mr. 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 Pt was febrile to 101 on admission, tachy to 114, and hypotensive U/S found cholelithiasis. CT abdomen found gallstone 6mm at gallbladder neck but no duct dilation. 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 Given ceftriaxone 1g, Flagyl 500mg Q6H during stay. Pt evaluated by general surgery and laparoscopic cholecystectomy performed without complication. Pt is reporting abdominal tenderness diffusely post-op but is not requiring analgesics at discharge. Liver enzymes were in normal limits. Coumadin held at discharge given DVT in May and doppler negative on this visit. Pt advised to follow up with Dr. Oseguera and PCP in the next 7-10 days. Date of Admission:10/16/18 Date of Discharge: 10/20/18 Minutes to complete discharge: 35 Discharge Summary Reason For Visit: CHOLECYSTITIS; SEPSIS Current Active Problems Cholecystitis (Acute) Sepsis (Acute) Hepatitis C (Chronic) Hypertension (Chronic) Mood disorder (Chronic) Osteoarthritis (Chronic) Condition: Stable - Instructions Diet, Activity, Other Instructions: Your Visit: You were seen in the hospital for abdominal pain and had an infected gallbladder. You were evaluated by the surgeon, treated with antibiotics and had your gallbladder surgically removed. Medication Changes: Please continue your home medications as prescribed. We have STOPPED your Coumadin as your ultrasound revealed no more blood blots. Discuss this change with your primary care physician. Follow Up: You should follow up with General Surgeon Dr. Oseguera 7-10 days. Follow up with your primary care provider within one week of discharge. and need further anticoagulation work up since you were found to have Deep venous thrombosis of lower extremity. Also please have your labs checked, magnesium , phosphorus and Comprehensive metabolic panel and complete blood count within a week period. Further Instructions: Please return to the nearest Emergency Room if you have extreme pain, temperature above 101, inability to urinate, excessive drainage or bleeding from incision sites. Please see Dr. Oseguera's instructions below: Dr. Oseguera Discharge Instructions Dear TERESA GEE, Post Operative Instructions Physical activity Resume your normal everyday activity as tolerated no heavy lifting or exercise until seen by your surgeon. You may walk unlimited amounts of and climb stairs. You may resume driving the car when you feel safe and comfortable behind the wheel and no longer taking narcotic medication. Wound care If you have a bandage, leave it on, and keep dry for 48 hours. After that time discard the outer bandage. If there are tapes on the skin under the outer bandage, leave them in place. They will peel off in the next 7 to 10 days. Do Not peel them off. You may shower 2 days after surgery once drain has been removed, but do not submerge the incisions. If there are tapes present on the skin, they can get wet. Diet There are no dietary restrictions. Eat healthy, high-fiber foods. Drink 6 to 8 glasses of liquid each day. This will assist in keeping your bowels are regular. Pain management You may take Tylenol or acetaminophen or Ibuprofen (for example, Motrin, Advil etc.) Any pain prescription medication ordered should be taken as prescribed for moderate to severe pain. Call Dr. Oseguera for any of the following: Severe pain not relieved by medication Fever of 101 or higher Excessive bleeding or drainage on dressing Inability to urinate If you experience any chest pain or shortness of breath please seek emergency treatment immediately. Call the office at [phone] for a post operative appointment in 7 - 10 days. Referrals: Colt Ctoto MD [Staff Physician] - 1 Week Paresh Oseguera MD [Staff Physician] - 1 Week Disposition: HOME - Home Medications Comprehensive Discharge Medication List: Ambulatory Orders Acetaminophen [Pain Relief] 650 mg PO PRN PRN 10/16/18 Atorvastatin Ca [Lipitor] 20 mg PO HS 10/16/18 Ledipasvir/Sofosbuvir [Harvoni 90-400 mg Tablet] 1 tab PO DAILY 10/16/18 Paroxetine HCl [Paxil -] 60 mg PO DAILY 10/16/18 traZODone HCL [Trazodone HCl] 100 mg PO DAILY 10/16/18 This patient is new to me today: No Emergency Visit: Yes ED Registration Date: 10/16/18 Care time: The patient presented to the Emergency Department on the above date and was hospitalized for further evaluation of their emergent condition. Critical Care patient: No - Discharge Referral Referred to [facility] Med P.C.: No ATTENDING PHYSICIAN STATEMENT I saw and evaluated the patient. I reviewed the resident's note and discussed the case with the resident. I agree with the resident's findings and plan as documented. SUBJECTIVE: OBJECTIVE: ASSESSMENT AND PLAN:
[2018-10-20] MEDS: ATORVASTATIN CA 20 MG TABLET (FP) PO SCH (21:13)
[2018-10-20] MEDS: traZODone HCL 100 MG TABLET (FP) PO SCH (21:14)
[2018-10-21 07:57] VITALS: TEMP 98.3
[2018-10-21] MEDS ORDERED: DEXTROSE 5%-WATER - 50 ML IVPB ONE (08:09)
[2018-10-21] MEDS ORDERED: cefTRIAXone SODIUM 1 GM VIAL ONE (08:09)
[2018-10-21] MEDS: CEFTRIAXONE 1 GM in DEXTROSE 5%-WATER - 50 ML IVPB SCH (09:10)
[2018-10-21] MEDS: PARoxetine HCL 20 MG TABLET PO SCH (09:10)
[2018-10-21 11:36] VITALS: BP 144/88; PULSE 74
--- NOTE | 2018-10-21 13:53 | OP ---
DATE OF OPERATION: 10/19/2018 PREOPERATIVE DIAGNOSIS: Chronic cholecystitis and cholelithiasis. POSTOPERATIVE DIAGNOSIS: Chronic cholecystitis and cholelithiasis. PROCEDURE: Laparoscopic cholecystectomy. SURGEON: Paresh Oseguera MD HEMODIALYSIS CHARGE NURSE: ISH Gill ANESTHESIA: General. OPERATIVE FINDINGS: Acute cholecystitis and cholelithiasis. The rest of the findings were unremarkable. ANESTHESIA: General. OPERATIVE FINDINGS: There was acute cholecystitis and cholelithiasis. The rest of the findings were unremarkable. PROCEDURE: The patient was placed on the operating table in the supine position and after the induction of general anesthesia the patient's abdomen was prepped with ChloraPrep and draped in sterile fashion. A timeout was taken and pneumoperitoneum established above the umbilicus using a Veress needle. Once 15 mmHg of pressure were obtained, a 5-mm port was placed at the umbilicus and additional lateral 5-mm ports and a subxiphoid 12-mm port. Laparoscopy was carried out and the previously noted findings were observed. Dissection was begun at the neck of the gallbladder where the peritoneum was opened medially and laterally using blunt dissection and electrocautery. The cystic duct was identified coursing from the neck of the gallbladder towards the common bile duct and it was dissected using blunt dissection proximally and distally for length. Similarly, the artery was identified and dissected proximally and distally for length. A critical view of safety was taken and then the duct and the artery were clipped twice proximally and twice distally with large hemoclips. The duct and artery were then serially divided using Endoshears. Hemostasis was checked for and noted to be good and then the gallbladder was removed from the liver bed in a retrograde fashion using electrocautery. Prior to removal from the edge of the liver, hemostasis in the liver bed was again checked for and noted to be good and then the gallbladder removed from the edge of the liver, placed in an EndoCatch , and brought out through the subxiphoid port. Pneumoperitoneum was reestablished. Copious irrigation was carried out with saline. Hemostasis was verified again. A 10-mm Mack-Mosley drain was placed in the right hepatorenal fossa and brought out through 1 of the 5-mm ports and secured to the skin with 2-0 silk suture. All port sites were removed under laparoscopic vision without evidence of bleeding from the port sites. The port sites were infiltrated with 0.5% Marcaine and the skin edges reapproximated with 4-0 Biosyn in a subcuticular continuous fashion. Steri-Strips and Band-Aid dressings were placed. The drain was connected to bulb suction and then the patient aroused from general anesthesia and transferred to the postanesthesia care unit in stable condition, awake and alert. ESTIMATED BLOOD LOSS: 50 mL. REPLACEMENT: Crystalloid. DRAINS: One 10-mm Mack-Mosley in the right gallbladder fossa. SPECIMEN: Gallbladder and contents to Pathology. I, Paresh Oseguera, was physically present in the operating room from the time the patient was placed on the operating table until he was transferred to the postanesthesia care unit in my accompaniment. MD MAGDIEL Martell/[id number] MTDD
--- NOTE | 2018-10-21 18:25 | PN ---
Teaching Attending Note Name of Resident: Ayala Ceballos ATTENDING PHYSICIAN STATEMENT I saw and evaluated the patient. I reviewed the resident's note and discussed the case with the resident. I agree with the resident's findings and plan as documented. SUBJECTIVE: Feeling better. Minimal abdominal pain. Tolerating oral intake. No nausea/vomiting/fever/chills. OBJECTIVE: Afebrile, Hemodynamically stable. Last Vital Signs Temp Pulse Resp BP Pulse Ox 98.3 F 74 20 144/88 93 L 10/21/18 10:00 10/21/18 10:00 10/21/18 10:00 10/21/18 10:00 10/21/18 09:00 HEENT - Atraumatic, Normocephalic. Heart - S1 S2, RRR Lungs - clear to auscultation Abdomen - Soft, mild RUQ tenderness. Trochar incision sites clean. Bowel Sounds normal. Extremities - no edema, no calf tenderness. Discharge Medications Medication Instructions Recorded Acetaminophen [Pain Relief] 650 mg PO PRN PRN 10/16/18 Atorvastatin Ca [Lipitor] 20 mg PO HS 10/16/18 Ledipasvir/Sofosbuvir [Harvoni 1 tab PO DAILY 10/16/18 90-400 mg Tablet] Paroxetine HCl [Paxil -] 60 mg PO DAILY 10/16/18 traZODone HCL [Trazodone HCl] 100 mg PO DAILY 10/16/18 ASSESSMENT AND PLAN: 62 year old male with history of HTN, Mood Disorder, DVT (on Coumadin), HCV (on Harvoni), presented with generalized weakness, RUQ pain, fevers, found to have acute cholecystitis. 1. Acute cholecystitis POD #2 s/p lap. cholecystectomy Sepsis due to acute cholecystitis - resolved. Was on Rocephin and Flagyl prior to surgery - no need for further Abx post-op. Medically stable for discharge. Surgery follow up as out-patient. 2. Hx DVT LE (current Doppler negative for DVT) - Coumadin discontinued. for hematology/PCP out-patient follow up for hypercoagulable work-up. 3. Hx of UTI - completed Bactrim. Repeat Urine cx negative. Asymptomatic. Afebrile, Hemodynamically Stable. 4. AAA 2.6cm - for out-patient follow up. 5. HLD - Continue Lipitor. Medically stable for discharge.
--- NOTE | 2018-10-22 17:54 | PATH ---
Surgical Pathology Report Patient Name: TERESA GEE [facility]. Rec. #: [id number] /Age/Gender: 1955 (Age: 62) / M Account: [id number] Location: [address] [place] [address] Taken: 10/19/2018 Received: 10/20/2018 Reported: 10/22/2018 Physicians: PHYSICIAN EMERGENCY DEPT Specimen(s) Received GALLBLADDER Clinical History Cholecystitis Final Diagnosis GALLBLADDER, CHOLECYSTECTOMY: ACUTE SUPERIMPOSED ON CHRONIC CHOLECYSTITIS. CHOLELITHIASIS. Electronically Signed Reji Sneed M.D. Gross Description Received in formalin, labeled "gallbladder," is a 8.5 x 2.5 x 2 cm. gallbladder with a 0.3 cm. in length portion of cystic duct attached. The outer surface is jerome and bosselated . The lumen contains numerous green black choleliths ranging from 0.2-3.2 cm in greatest dimension, admixed with thick viscid bile. The mucosa is bile-stained and velvety. The wall of the gallbladder measures 0.2 cm. in thickness. Brake Drum Molder sections are submitted in one cassette. AE/10/21/2018 mannie/10/19/2018
== END 2018-10-21 11:43 | disposition home or self-care (01) | DRG 710 ==
LOC: JER 09:27 → JERBED 16:36 → J6S 10-17 14:50
PROVIDERS: ADMIT Internal Medicine
PROC: 0FT44ZZ Resection of Gallbladder, Percutaneous Endoscopic Approach (ICD-10-PCS; principal; 2018-10-19 16:30)
DX: A41.89 Other specified sepsis (principal); N39.0 Urinary tract infection, site not specified; K80.12 Calculus of gallbladder with acute and chronic cholecystitis without obstruction; I10 Essential (primary) hypertension; E78.5 Hyperlipidemia, unspecified; F39 Unspecified mood [affective] disorder; E83.39 Other disorders of phosphorus metabolism; R10.11 Right upper quadrant pain; I71.4 Abdominal aortic aneurysm, without rupture; R00.0 Tachycardia, unspecified; B19.20 Unspecified viral hepatitis C without hepatic coma; I95.9 Hypotension, unspecified
CPT/HCPCS: 36415; 71045-TC-FY; 71275-TC; 74174-TC; 76705-TC; 80053; 80076; 81003; 82803; 83605; 83690; 83735; 84100; 84484; 85025; 85027; 85610; 85730; 87040; 87086; 88304-TC; 93005; 93010; 93970-TC; 94760; 97116-GP; 97161-GP; 99283-25; J0131; J7030

== ENCOUNTER 2022-03-03 17:43 | Observation (INO) | payer OTHER ==
[2022-03-03 17:51] VITALS: BMI 42.5
[2022-03-03 19:51] LABS: BASO % 0.4 % (0-2.0); EOS % 0.8 % (0-4.5); HEMATOCRIT 42.9 % (35.4-49); HEMOGLOBIN 14.1 GM/dL (11.7-16.9); MCH 29.8 pg (25.7-33.7); MCHC 32.9 g/dl (32.0-35.9); MEAN CELL VOLUME 90.6 fl (80-96); MEAN PLT VOLUME 7.4 fl (7.5-11.1); MONO % 8.5 % (3.8-10.2); NEUT % 76.3 % (42.8-82.8); PLATELET COUNT 347 10^3/uL (134-434); RBC 4.74 M/mm3 (4.00-5.60); RDW 13.8 % (11.9-15.9); WHITE BLOOD COUNT 12.5 K/mm3 (4.0-10.0)
[2022-03-03] MEDS ORDERED: ACETAMINOPHEN 1000 MG/100 ML BAG IVPB ONE (20:05)
[2022-03-03 20:20] LABS: CALCIUM 9.1 mg/dL (8.5-10.1)
[2022-03-03 20:21] LABS: ALBUMIN 3.3 g/dl (3.4-5.0); BLOOD UREA NITROGEN 15.6 mg/dL (7-18); MAGNESIUM 2.2 mg/dL (1.8-2.4)
[2022-03-03 20:25] LABS: BILIRUBIN,TOTAL 0.6 mg/dL (0.2-1)
[2022-03-03 20:26] LABS: TOT PROT 7.7 g/dl (6.4-8.2)
[2022-03-03 20:29] LABS: N-TERMINAL BNP 146.1 pg/ml (5-125)
[2022-03-03] MEDS ORDERED: ACETAMINOPHEN INJECTION 100 ML IVPB ONE (20:36)
[2022-03-03] MEDS ORDERED: morphine SULFATE 4 MG/ML VIAL IVPUSH ONE (22:55)
[2022-03-03] MEDS ORDERED: ONDANSETRON 4 MG/2 ML VIAL IVPB ONE (22:57)
[2022-03-03] MEDS ORDERED: ONDANSETRON 4 MG/2 ML VIAL ONE (23:03)
[2022-03-04] MEDS ORDERED: NITROGLYCERIN SUBLINGUAL 1/150 0.4 MG TAB SL ONE (01:25)
[2022-03-04] MEDS ORDERED: IBUPROFEN 400 MG TABLET (FP) PO PRN (02:25)
[2022-03-04 05:21] LABS: EPI CELLS 8 /uL (0-25.1); HYALINE CASTS 0 /uL (0-3.1); PH,URINE 6.5 (5.0-8.0); URINE APPEARANCE CLEAR; URINE BACTERIA 5 /uL (0-1359); URINE BILIRUBIN NEGATIVE (NEGATIVE); URINE COLOR DK YELLOW; URINE GLUCOSE (UA) NEGATIVE (NEGATIVE); URINE KETONE TRACE (NEGATIVE); URINE LEUK ESTERASE NEGATIVE (NEGATIVE); URINE NITRITE NEGATIVE (NEGATIVE); URINE PROTEIN 1+ (NEGATIVE); URINE RBC 2051 /uL (0-23.9); URINE UROBILINOGEN 0.2 mg/dL (0.2-1.0); URINE WBC 23 /uL (0-25.8)
[2022-03-04 05:23] LABS: METHADONE, UR NEGATIVE (NEGATIVE); PHENCYCLIDINE,URINE NEGATIVE (NEGATIVE); URINE BARBITURATES NEGATIVE (NEGATIVE); URINE BENZODIAZEPINES NEGATIVE (NEGATIVE)
[2022-03-04 05:24] LABS: COCAINE, UR NEGATIVE (NEGATIVE); OPIATES, URI NEGATIVE (NEGATIVE); URINE AMPHETAMINES NEGATIVE (NEGATIVE)
[2022-03-04] MEDS ORDERED: LIDOCAINE 5% TOPICAL PATCH ONE (08:55)
[2022-03-04] MEDS ORDERED: ENOXAPARIN NA (PORCINE) 40 MG/0.4 ML DISP.SYRIN SQ ONE (08:55)
[2022-03-04] MEDS: LIDOCAINE 5% TOPICAL PATCH TP SCH (09:09)
[2022-03-04] MEDS: traZODone HCL 50 MG TABLET (FP) PO SCH (09:09)
[2022-03-04] MEDS: PARoxetine HCL 20 MG TABLET PO SCH (09:09)
[2022-03-04] MEDS: ENOXAPARIN NA (PORCINE) 40 MG/0.4 ML DISP.SYRIN SQ SCH (09:21)
[2022-03-04 09:42] LABS: HEMATOCRIT 40.1 % (35.4-49); HEMOGLOBIN 13.2 GM/dL (11.7-16.9); MCH 29.9 pg (25.7-33.7); MCHC 32.9 g/dl (32.0-35.9); PLATELET COUNT 303 10^3/uL (134-434); RBC 4.41 M/mm3 (4.00-5.60); RDW 13.8 % (11.9-15.9); WHITE BLOOD COUNT 7.1 K/mm3 (4.0-10.0)
[2022-03-04] MEDS ORDERED: PATIENT'S OWN MEDICATION (NON-FORMULARY) (Ledipasvir/Sofosbuvir [Harvoni 90-400 Mg Tablet] PO SCH (10:00)
[2022-03-04 10:05] LABS: ALBUMIN 2.9 g/dl (3.4-5.0)
[2022-03-04 10:07] LABS: BLOOD UREA NITROGEN 14.1 mg/dL (7-18); MAGNESIUM 2.3 mg/dL (1.8-2.4)
[2022-03-04 10:09] LABS: PHOSPHOROUS 3.6 mg/dL (2.5-4.9)
[2022-03-04 10:10] LABS: BILIRUBIN,TOTAL 0.6 mg/dL (0.2-1); TOT PROT 6.8 g/dl (6.4-8.2)
[2022-03-04] MEDS ORDERED: IBUPROFEN 800 MG/8 ML IJ IVPB PRN (13:12)
[2022-03-04] MEDS ORDERED: IBUPROFEN 800 MG/8 ML IJ IVPB ONE (13:57)
[2022-03-05] MEDS: ATORVASTATIN CA 20 MG TABLET (FP) PO SCH (04:19)
[2022-03-05] MEDS ORDERED: LIDOCAINE 5% TOPICAL PATCH ONE (08:37)
[2022-03-05] MEDS ORDERED: ENOXAPARIN NA (PORCINE) 40 MG/0.4 ML DISP.SYRIN SQ ONE (08:38)
[2022-03-05] MEDS: PARoxetine HCL 20 MG TABLET PO SCH (09:33)
[2022-03-05] MEDS: traZODone HCL 50 MG TABLET (FP) PO SCH (09:33)
[2022-03-05] MEDS: ENOXAPARIN NA (PORCINE) 40 MG/0.4 ML DISP.SYRIN SQ SCH (09:33)
[2022-03-05] MEDS: LIDOCAINE 5% TOPICAL PATCH TP SCH (10:27)
[2022-03-05] MEDS: LIDOCAINE PATCH REMOVAL MC SCH (10:27)
[2022-03-05] MEDS ORDERED: HYDROmorphone HCl 2 MG/ML VIAL ONE (12:56)
[2022-03-06] MEDS ORDERED: PARoxetine HCL 10 MG TABLET ONE (10:37)
[2022-03-06] MEDS ORDERED: LIDOCAINE 5% TOPICAL PATCH ONE (10:37)
[2022-03-06] MEDS ORDERED: ENOXAPARIN NA (PORCINE) 40 MG/0.4 ML DISP.SYRIN SQ ONE (10:37)
[2022-03-06] MEDS: ATORVASTATIN CA 20 MG TABLET (FP) PO SCH ×2 (10:59→21:49)
[2022-03-06] MEDS: LIDOCAINE PATCH REMOVAL MC SCH ×2 (10:59→21:50)
[2022-03-06] MEDS: traZODone HCL 50 MG TABLET (FP) PO SCH (11:10)
[2022-03-06] MEDS: LIDOCAINE 5% TOPICAL PATCH TP SCH (11:11)
[2022-03-06] MEDS: PARoxetine HCL 20 MG TABLET PO SCH (11:11)
[2022-03-06] MEDS: ENOXAPARIN NA (PORCINE) 40 MG/0.4 ML DISP.SYRIN SQ SCH (11:11)
[2022-03-06] MEDS ORDERED: IBUPROFEN 800 MG/8 ML IJ IVPB ONE (15:44)
[2022-03-06] MEDS: IBUPROFEN 800 MG/8 ML IJ IVPB SCH (15:49)
[2022-03-06] MEDS ORDERED: ATORVASTATIN CA 20 MG TABLET (FP) ONE (21:33)
[2022-03-07] MEDS: IBUPROFEN 800 MG/8 ML IJ IVPB SCH ×4 (00:42→23:01)
[2022-03-07] MEDS ORDERED: IBUPROFEN 800 MG/8 ML IJ IVPB ONE ×2 (06:24→15:21)
[2022-03-07] MEDS ORDERED: ENOXAPARIN NA (PORCINE) 40 MG/0.4 ML DISP.SYRIN SQ ONE (10:27)
[2022-03-07] MEDS ORDERED: PARoxetine HCL 10 MG TABLET ONE (10:27)
[2022-03-07] MEDS ORDERED: LIDOCAINE 5% TOPICAL PATCH ONE (10:27)
[2022-03-07] MEDS: LIDOCAINE 5% TOPICAL PATCH TP SCH (10:35)
[2022-03-07] MEDS: ENOXAPARIN NA (PORCINE) 40 MG/0.4 ML DISP.SYRIN SQ SCH (10:35)
[2022-03-07] MEDS: PARoxetine HCL 20 MG TABLET PO SCH (10:35)
[2022-03-07] MEDS: traZODone HCL 50 MG TABLET (FP) PO SCH (10:35)
[2022-03-07] MEDS ORDERED: traZODone HCL 100 MG TABLET (FP) PO SCH (15:21)
[2022-03-07] MEDS: ATORVASTATIN CA 20 MG TABLET (FP) PO SCH (23:00)
[2022-03-07] MEDS: LIDOCAINE PATCH REMOVAL MC SCH (23:02)
[2022-03-08 01:13] VITALS: RESP 18
[2022-03-08] MEDS: IBUPROFEN 800 MG/8 ML IJ IVPB SCH ×2 (07:25→14:11)
[2022-03-08] MEDS: LIDOCAINE 5% TOPICAL PATCH TP SCH (11:23)
[2022-03-08] MEDS: ENOXAPARIN NA (PORCINE) 40 MG/0.4 ML DISP.SYRIN SQ SCH (11:23)
[2022-03-08] MEDS: PARoxetine HCL 20 MG TABLET PO SCH (11:24)
[2022-03-08 14:53] VITALS: BP 142/86; PULSE 62; TEMP 98.7
== END 2022-03-08 15:30 ==
LOC: JER 17:43 → JERBED 22:54 → J8W 03-07 22:30
PROVIDERS: ADMIT Internal Medicine; ATTEND Nurse Practitioner Acute Care
PROC: 3E033NZ Introduction of Analgesics, Hypnotics, Sedatives into Peripheral Vein, Percutaneous Approach (ICD-10-PCS; principal; 2022-03-03)
PROC: 3E023GC Introduction of Other Therapeutic Substance into Muscle, Percutaneous Approach (ICD-10-PCS; 2022-03-03)
PROC: 3E033GC Introduction of Other Therapeutic Substance into Peripheral Vein, Percutaneous Approach (ICD-10-PCS; 2022-03-03)
DX: U07.1 COVID-19 (principal); R07.9 Chest pain, unspecified; F39 Unspecified mood [affective] disorder; I10 Essential (primary) hypertension; E78.00 Pure hypercholesterolemia, unspecified; Z86.718 Personal history of other venous thrombosis and embolism; B19.20 Unspecified viral hepatitis C without hepatic coma; E66.01 Morbid (severe) obesity due to excess calories; Z68.41 Body mass index [BMI] 40.0-44.9, adult; Z85.46 Personal history of malignant neoplasm of prostate; Z87.891 Personal history of nicotine dependence
CPT/HCPCS: 0241U-QW; 36415; 70450-TC; 71045-TC-FY; 71275-TC; 80053; 80307; 81003; 83690; 83735; 83880; 84100; 84484; 85025; 85027; 86850; 86900; 86901; 87086; 93005; 93010; 96372; 96374; 96375; 97116-GP; 97162-GP; 99285-25; G0378; Q9967

== ENCOUNTER 2024-02-27 17:35 | Observation (INO) | payer OTHER ==
[2024-02-27] MEDS ORDERED: ACETAMINOPHEN INJECTION 100 ML ONE (18:24)
[2024-02-27] MEDS ORDERED: FUROSEMIDE 40 MG/4 ML INJECTABLE VIAL ONE (18:24)
[2024-02-27 19:08] LABS: BASO % 0.5 % (0-2.0); EOS % 1.4 % (0-4.5); HEMATOCRIT 43.6 % (35.4-49); HEMOGLOBIN 14.4 GM/dL (11.7-16.9); LYMPH % 19.9 % (8-40); MCH 29.6 pg (25.7-33.7); MCHC 33.1 g/dl (32.0-35.9); MEAN CELL VOLUME 89.3 fl (80-96); MEAN PLT VOLUME 7.1 fl (7.5-11.1); MONO % 8.5 % (3.8-10.2); NEUT % 69.7 % (42.8-82.8); PLATELET COUNT 292 10^3/uL (134-434); RBC 4.88 M/mm3 (4.00-5.60); RDW 14.5 % (11.9-15.9)
[2024-02-27 19:09] LABS: VENOUS BASE EXCESS -4.4 mmol/L (-2-2); VENOUS O2 SATURATION 81.1 % (70-80); VENOUS PCO2 42.9 mmHg (38-52); VENOUS PH 7.32 (7.310-7.410)
[2024-02-27] MEDS: ACETAMINOPHEN 1000 MG/100 ML BAG IVPB ONE (19:21)
[2024-02-27] MEDS: FUROSEMIDE 100 MG/10 ML INJECTABLE VIAL IVPB ONE (19:21)
[2024-02-27 20:17] LABS: INR 1.02 (0.83-1.09); PROTHROMBIN TIME (PATIENT) 11.7 SEC (9.7-13.0)
[2024-02-27 20:19] LABS: ACTIVATED PTT 29.8 SECONDS (25.2-36.5)
[2024-02-27 20:38] LABS: CHLORIDE 113 mmol/L (98-107); SODIUM 142 mmol/L (136-145)
[2024-02-27 20:40] LABS: ANION GAP 11 mmol/L (4-13); BLOOD UREA NITROGEN 25.8 mg/dL (7-18); CALCIUM 9.3 mg/dL (8.5-10.1); CO2 18 mmol/L (21-32)
[2024-02-27 20:41] LABS: ALBUMIN 3.7 g/dl (3.4-5.0); GLUCOSE,RANDOM 100 mg/dL (74-106); MAGNESIUM 2.3 mg/dL (1.8-2.4)
[2024-02-27 20:44] LABS: CREATININE 0.9 mg/dL (0.55-1.3); SGOT/AST 25 U/L (15-37); SGPT/ALT 28 U/L (13-61)
[2024-02-27 20:45] LABS: BILIRUBIN,TOTAL 0.4 mg/dL (0.2-1); TOT PROT 7.8 g/dl (6.4-8.2)
[2024-02-27 20:47] LABS: ALK PHOS 93 U/L (45-117)
[2024-02-27 20:49] LABS: N-TERMINAL BNP 212.1 pg/ml (5-125)
[2024-02-27] MEDS: ASPIRIN 81 MG CHEWABLE TABLETS PO ONE (22:39)
[2024-02-27] MEDS ORDERED: ASPIRIN 81 MG CHEWABLE TABLETS ONE (22:41)
[2024-02-28 04:09] LABS: ARTERIAL BLD GAS O2 SATURATION 94.9 % (95-98); ARTERIAL BLOOD GAS BASE EXCESS -0.7 mmol/L (-2-2); ARTERIAL BLOOD GAS PO2 71.9 mmHg (80-100); ARTERIAL BLOOD GAS pH 7.427 (7.350-7.450)
[2024-02-28 04:11] LABS: ALLENS TEST POSITIVE
[2024-02-28] MEDS: LORazepam 2 MG/ML SDV VIAL IVPUSH ONE (04:21)
[2024-02-28] MEDS: FUROSEMIDE 20 MG TABLET (FP) PO SCH (06:41)
[2024-02-28] MEDS: oxyCODONE HCL 5 MG TABLET PO SCH (06:41)
[2024-02-28 08:20] LABS: POTASSIUM 3.6 mmol/L (3.5-5.1)
[2024-02-28 08:22] LABS: BASO % 0.7 % (0-2.0); EOS % 3.2 % (0-4.5); HEMATOCRIT 39.7 % (35.4-49); HEMOGLOBIN 13.2 GM/dL (11.7-16.9); LYMPH % 25.9 % (8-40); MCH 30.1 pg (25.7-33.7); MCHC 33.3 g/dl (32.0-35.9); MEAN CELL VOLUME 90.3 fl (80-96); MEAN PLT VOLUME 7.2 fl (7.5-11.1); MONO % 10.1 % (3.8-10.2); NEUT % 60.1 % (42.8-82.8); PLATELET COUNT 262 10^3/uL (134-434); RDW 14.4 % (11.9-15.9); WHITE BLOOD COUNT 5.8 K/mm3 (4.0-10.0)
[2024-02-28 08:28] LABS: ALBUMIN 3.2 g/dl (3.4-5.0); MAGNESIUM 2.1 mg/dL (1.8-2.4)
[2024-02-28 08:29] LABS: BLOOD UREA NITROGEN 25.4 mg/dL (7-18); CALCIUM 8.8 mg/dL (8.5-10.1)
[2024-02-28 08:31] LABS: CREATININE 0.8 mg/dL (0.55-1.3)
[2024-02-28 08:32] LABS: PHOSPHOROUS 3.1 mg/dL (2.5-4.9)
[2024-02-28 08:33] LABS: BILIRUBIN,TOTAL 0.7 mg/dL (0.2-1); TOT PROT 6.6 g/dl (6.4-8.2)
[2024-02-28] MEDS: PANTOPRAZOLE 40 MG TABLET PO SCH (09:32)
[2024-02-28] MEDS: ATORVASTATIN CA 20 MG TABLET (FP) PO SCH (09:32)
[2024-02-28] MEDS: POLYETHYLENE GLYCOL (HEALTHYLAX) 3350 17 GM PACKET PO SCH ×2 (09:32→21:49)
[2024-02-28] MEDS ORDERED: ENOXAPARIN NA (PORCINE) 40 MG/0.4 ML DISP.SYRIN SQ SCH (10:00)
[2024-02-28] MEDS ORDERED: ASPIRIN 81 MG CHEWABLE TABLETS PO SCH (10:00)
[2024-02-28] MEDS ORDERED: traZODone HCL 150 MG TABLET PO SCH ×2 (10:00)
[2024-02-28] MEDS: ENALAPRIL MALEATE 2.5 MG TABLET PO SCH (10:44)
[2024-02-28] MEDS: traZODone HCL 50 MG TABLET (FP) PO SCH (21:47)
[2024-02-29 07:13] LABS: HEMATOCRIT 38.4 % (35.4-49); HEMOGLOBIN 12.5 GM/dL (11.7-16.9); MCH 29.5 pg (25.7-33.7); MCHC 32.5 g/dl (32.0-35.9); MEAN CELL VOLUME 90.9 fl (80-96); MEAN PLT VOLUME 6.9 fl (7.5-11.1); PLATELET COUNT 244 10^3/uL (134-434); RBC 4.23 M/mm3 (4.00-5.60); RDW 14.1 % (11.9-15.9); WHITE BLOOD COUNT 5.3 K/mm3 (4.0-10.0)
[2024-02-29 07:27] LABS: POTASSIUM 3.8 mmol/L (3.5-5.1)
[2024-02-29 07:33] LABS: ALBUMIN 2.8 g/dl (3.4-5.0); CALCIUM 8.7 mg/dL (8.5-10.1); MAGNESIUM 2.1 mg/dL (1.8-2.4)
[2024-02-29 07:35] LABS: BLOOD UREA NITROGEN 20.8 mg/dL (7-18)
[2024-02-29 07:36] LABS: CREATININE 0.8 mg/dL (0.55-1.3)
[2024-02-29 07:37] LABS: BILIRUBIN,TOTAL 0.7 mg/dL (0.2-1); TOT PROT 6.2 g/dl (6.4-8.2)
[2024-02-29 07:38] LABS: PHOSPHOROUS 3.5 mg/dL (2.5-4.9)
[2024-02-29] MEDS: FUROSEMIDE 40 MG TABLET (FP) PO SCH (09:22)
[2024-02-29] MEDS: ENALAPRIL MALEATE 5 MG TABLET PO SCH (09:22)
[2024-02-29 13:14] VITALS: BMI 38.4
[2024-02-29] MEDS: oxyCODONE HCL 5 MG TABLET PO SCH (15:44)
[2024-02-29] MEDS: ATORVASTATIN CA 20 MG TABLET (FP) PO SCH (21:14)
[2024-02-29] MEDS: traZODone HCL 50 MG TABLET (FP) PO SCH (21:14)
[2024-02-29] MEDS: POLYETHYLENE GLYCOL (HEALTHYLAX) 3350 17 GM PACKET PO SCH (21:19)
[2024-03-01] MEDS: PANTOPRAZOLE 40 MG TABLET PO SCH (11:03)
[2024-03-01] MEDS: FUROSEMIDE 40 MG TABLET (FP) PO SCH (11:03)
[2024-03-01] MEDS: MINERAL OIL ENEMA 133 ML ENEMA RC ONE (11:03)
[2024-03-01] MEDS: ENALAPRIL MALEATE 2.5 MG TABLET PO SCH (11:12)
[2024-03-01] MEDS: FUROSEMIDE 20 MG TABLET (FP) PO SCH (11:12)
[2024-03-01] MEDS: ENALAPRIL MALEATE 5 MG TABLET PO SCH (11:28)
[2024-03-01] MEDS: POLYETHYLENE GLYCOL (HEALTHYLAX) 3350 17 GM PACKET PO SCH (15:15)
[2024-03-01] MEDS: BISACODYL 10 MG SUPP.RECT PR ONE (21:23)
[2024-03-02 10:01] LABS: HEMATOCRIT 41.9 % (35.4-49); HEMOGLOBIN 13.9 GM/dL (11.7-16.9); MCH 29.9 pg (25.7-33.7); MCHC 33.1 g/dl (32.0-35.9); MEAN CELL VOLUME 90.2 fl (80-96); MEAN PLT VOLUME 7.1 fl (7.5-11.1); PLATELET COUNT 254 10^3/uL (134-434); RBC 4.65 M/mm3 (4.00-5.60); RDW 14.1 % (11.9-15.9); WHITE BLOOD COUNT 5.9 K/mm3 (4.0-10.0)
[2024-03-02] MEDS: MINERAL OIL ENEMA 133 ML ENEMA RC ONE (10:31)
[2024-03-02 10:34] LABS: BLOOD UREA NITROGEN 19.2 mg/dL (7-18); CALCIUM 9.2 mg/dL (8.5-10.1)
[2024-03-02 10:35] LABS: ALBUMIN 3.1 g/dl (3.4-5.0); MAGNESIUM 2.1 mg/dL (1.8-2.4)
[2024-03-02 10:38] LABS: CREATININE 1.1 mg/dL (0.55-1.3); PHOSPHOROUS 3.1 mg/dL (2.5-4.9)
[2024-03-02 10:39] LABS: BILIRUBIN,TOTAL 1.1 mg/dL (0.2-1); TOT PROT 7.1 g/dl (6.4-8.2)
[2024-03-03 13:35] VITALS: RESP 18
[2024-03-03 16:49] VITALS: BP 114/70; PULSE 62; TEMP 97.5
== END 2024-03-03 15:36 | disposition home or self-care (01) ==
LOC: JER 17:35 → JERBED 21:58 → J4W 02-28 03:21 → J5S 02-29 12:55 → J7W 03-02 15:51
PROVIDERS: ADMIT Internal Medicine
PROC: 3E033NZ Introduction of Analgesics, Hypnotics, Sedatives into Peripheral Vein, Percutaneous Approach (ICD-10-PCS; principal; 2024-02-27)
PROC: 3E033GC Introduction of Other Therapeutic Substance into Peripheral Vein, Percutaneous Approach (ICD-10-PCS; 2024-02-27)
DX: R07.89 Other chest pain (principal); R53.1 Weakness; K59.00 Constipation, unspecified; I11.0 Hypertensive heart disease with heart failure; I50.9 Heart failure, unspecified; E78.5 Hyperlipidemia, unspecified; M19.90 Unspecified osteoarthritis, unspecified site; F41.9 Anxiety disorder, unspecified; Z85.46 Personal history of malignant neoplasm of prostate; Z87.891 Personal history of nicotine dependence; Z86.19 Personal history of other infectious and parasitic diseases; Z86.718 Personal history of other venous thrombosis and embolism
CPT/HCPCS: 0241U-QW; 36415; 36600; 70450-TC; 71045-TC-FY; 71275-TC; 80053; 80061; 82803; 82962; 83735; 83880; 84100; 84439; 84443; 84484; 85025; 85027; 85610; 85730; 86803; 87522; 93005; 93010; 93306-TC; 94660; 96374; 96375; 97116-GP; 97162-GP; 99285-25; G0378; J0131; Q9967